=== PATIENT | female | born 1960 | race Two or more races ===

== ENCOUNTER 2025-02-16 00:49 | Inpatient (IN) | payer MEDICARE, MEDICAID ==
[~2025-02-16] VITALS: Ht 157.5 cm; Wt 99.5 kg
[2025-02-16] VITALS (12 sets, daily range): BP systolic 112–130; BP diastolic 53–78; PULSE 78–99; RESP 15–20; TEMP 97.5–98.3; O2SAT 92–100
[2025-02-16] MEDS: ALBUTEROL SULF 2.5 MG/0.5ML(0.5%) NEB SOLN NEB ONE ×2 (01:40→03:17)
[2025-02-16] MEDS: IPRATROPIUM BROM 0.5 MG/2.5ML INH SOL NEB ONE ×2 (01:40→03:17)
--- NOTE | 2025-02-16 01:55 | ED.PDOC ---
History of Present Illness HPI Comments 64 y/o obese F, with a history of COPD, DM, and HTN, is BIBA for c/o shortness of breath and left flank pain that began today. Patient was reported to have been found on 91% on RA on scene and was given breathing treatment en route. SpO2, temporarily, improved 96% prior to dropping, again, before ED arrival. She denies having any chest pain, nausea, vomiting, fever, chills, or further associated symptoms. Chief Complaint: Shortness of Breath Time Seen by MD: 01:00 Reviewed Notes: Nurses Notes, Border Patrol Officer Notes, Medications, Allergies Allergies: Coded Allergies: NO KNOWN ALLERGIES (Unverified , 02/16/25) Information Source: Patient, Emergency Med Personnel Mode of Arrival: EMS Severity: Moderate Timing: Hours Duration: Since onset Prehospital treatment: 12 Lead EKG, Breathing Tx, Floor Finisher Past Medical History PAST MEDICAL HISTORY: COPD, DM, HTN Surgical History: Denies all surgeries RAILROAD WATCHMAN History: Denies all RAILROAD WATCHMAN Hx Family History Family History: Unknown Social History Smoker: Non-Smoker Alcohol: Denies ETOH Use Drugs: Denies Drug Use Lives In: Home All Other Systems: Reviewed and Negative (Comprehensive systems review obtained and negative except for what is stated in the HPI.) Physical Exam General Appearance: No Apparent Distress, Obese HEENT: Normal ENT Inspection, Pharynx Normal, TMs Normal Neck: Full Range of Motion, Non-Tender, Normal, Normal Inspection Respiratory: Chest Non-Tender, Decreased Breath Sounds (diminished breath sounds on left-side ), Lungs Clear, No Accessory Muscle Use, No Respiratory Dis tress Cardiovascular: No Edema, No JVD, No Murmur, No Gallop, Normal Peripheral Pulses, Regular Rate/Rhythm Breast Exam: Deferred Gastrointestinal: No Organomegaly, Non Tender, No Pulsatile Mass, Normal Bowel Sounds, Soft Genitalia: Deferred Pelvic: Deferred Rectal: Deferred Extremities: No calf tenderness, Normal capillary refill, Normal inspection, Normal range of motion, Non-tender, No pedal edema Musculoskeletal : Apperance: Normal Neurologic: Alert, respiratory medicine physician II-XII nml as Tested, No Motor Deficits, Normal Affect, Normal Mood, No Sensory Deficits Cerebellar Function: Normal Reflexes: Normal Skin: Dry, Normal Color, Warm Lymphatic: No Adenopathy Was a procedure done? Was a procedure done?: No Differential Dx Considerations may include: URI, [place], PE, PNA, viral syndrome, nephrolithiasis, cystitis, musculoskeletal pain, among others X-Ray, Labs, Meds, VS Vital Signs Date Time Temp Pulse Resp B/P (MAP) Pulse Ox O2 Delivery O2 Flow Rate FiO2 02/16/25 01:42 22 100 Nasal Cannula* 2 28 02/16/25 01:10 98.3 117 22 92/53 (66) 100 98.3 02/16/25 00:53 115 Lab Test 02/16/25 01:50 Range/Units White Blood Count 10.2 4.4-10.8 10^3/uL Red Blood Count 4.94 4.0-5.20 10^6/uL Hemoglobin 13.8 12.2-16.2 g/dL Hematocrit 42.0 36.0-46.0 % Mean Corpuscular Volume 85.0 80.0-100.0 fL Mean Corpuscular Hemoglobin 27.8 L 28.0-32.0 pg Mean Corpuscular Hemoglobin Concent 32.8 32.0-36.0 g/dL Red Cell Distribution Width 16.0 H 11.8-14.3 % Platelet Count 195 140-450 10^3/uL Mean Platelet Volume 7.0 6.9-10.8 fL Neutrophils (%) (Auto) 69.2 37.0-80.0 % Lymphocytes (%) (Auto) 20.0 10.0-50.0 % Monocytes (%) (Auto) 9.3 0.0-12.0 % Eosinophils (%) (Auto) 1.2 0.0-7.0 % Basophils (%) (Auto) 0.3 0.0-2.0 % Neutrophils # (Auto) 7.0 1.6-8.6 10 ^3/uL Lymphocytes # (Auto) 2.0 0.4-5.4 10 ^3/uL Monocytes # (Auto) 0.9 0-1.3 10 ^3/uL Eosinophils # (Auto) 0.1 0-0.8 10 ^3/uL Basophils # (Auto) 0 0-0.2 10 ^3/uL Nucleated Red Blood Cells 0.0 % Sodium Level 136 136-145 mmol/L Potassium Level 4.1 3.5-5.1 mmol/L Chloride Level 103 98-107 mmol/L Carbon Dioxide Level 25 20-31 mmol/L Anion Gap 8 5-15 Blood Urea Nitrogen 14 9-23 mg/dL Creatinine 0.98 0.550-1.02 mg/dL Glomerular Filtration Rate Calc 64 >90 mL/min BUN/Creatinine Ratio 14.3 10.0-20.0 Serum Glucose 205 H 74-106 mg/dL Calcium Level 9.0 8.7-10.4 mg/dL Total Bilirubin Pending Aspartate Amino Transferase (AST) 17 13-40 U/L Alanine Aminotransferase (ALT) 21 7-40 U/L Alkaline Phosphatase 70 46-116 U/L B-Type Natriuretic Peptide 6.70 0-100 pg/mL Total Protein 7.1 5.7-8.2 g/dL Albumin 4.3 3.2-4.8 g/dL Current Medications Medications (Trade) Dose Ordered Sig/Terra Route Start Time Stop Time Status Last Admin Albuterol (Ventolin Medneb) 2.5 mg ONCE ONCE NEB 02/16/25 01:00 02/16/25 01:02 DC 02/16/25 01:40 Ipratropium [place] (Atrovent Medneb) 0.5 mg ONCE ONCE NEB 02/16/25 01:00 02/16/25 01:02 DC 02/16/25 01:40 X-Ray, Labs, Meds, VS Comment Chest x-ray shows concerns of pneumonia Review of CT abdomen and pelvis shows some consolidation in left lower lobe, pending radiology review There was no elevated white count Patient will be admitted for pneumonia, hypoxia, COPD exacerbation Patient will be started on azithromycin and Rocephin Given Decadron and DuoNeb treatments Imaging: X-rays and CT scans were reviewed and interpreted by this provider, Pending radiology review. Laboratory: Labs reviewed and interpreted by this provider. Patient has prior medical visits reviewed. Med reconciliation performed Vital signs reviewed Time of 1ST Reevaluation: 01:30 Reevaluation 1ST: Unchanged Patient Education/Counseling: Diagnosis, Treatment Family Education/Counseling: No Family Present Departure 1 Departure Time of Disposition: 02:41 Impression: Primary Impression: Pneumonia Qualified Codes: J18.9 - Pneumonia, unspecified organism Additional Impressions: Hypoxia COPD exacerbation Disposition: 09 ADMITTED INPATIENT Condition: Stable Critical Care Note Critical Care Time?: No Stability Stability form required: No Heart Score Heart Score: Heart Score Response (Comments) Value History N/A 0 EKG N/A 0 Age N/A 0 Risk Factors N/A 0 Troponin N/A 0 Total 0 I personally scribed for KENAN FIGUEROA ([email or web address]) on 02/16/25 at 01:55. Electronically submitted by Emeka Cheema ([email or web address]). KENAN FIGUEROA February 16, 2025 01:55
[2025-02-16 02:03] LABS: Basophils # (auto) 0 10 ^3/uL (0-0.2); Basophils % (auto) 0.3 % (0.0-2.0); Eosinophils # (auto) 0.1 10 ^3/uL (0-0.8); Eosinophils % (auto) 1.2 % (0.0-7.0); Hemoglobin 13.8 g/dL (12.2-16.2); Mean Corpuscular Hemoglobin 27.8 pg (28.0-32.0); Mean Corpuscular Hgb Conc. 32.8 g/dL (32.0-36.0); Monocytes # (auto) 0.9 10 ^3/uL (0-1.3); Monocytes % (auto) 9.3 % (0.0-12.0); Neutrophils % (auto) 69.2 % (37.0-80.0); Platelet Count (auto) 195 10^3/uL (140-450); Red Blood Cells 4.94 10^6/uL (4.0-5.20); White Blood Cell 10.2 10^3/uL (4.4-10.8)
[2025-02-16 02:20] LABS: Alanine Aminotransferase 21 U/L (7-40); Albumin 4.3 g/dL (3.2-4.8); Alkaline Phosphatase 70 U/L (46-116); Anion Gap 8 (5-15); Aspartate Aminotransferase 17 U/L (13-40); BUN/Creatinine Ratio 14.3 (10.0-20.0); Blood Urea Nitrogen 14 mg/dL (9-23); Carbon Dioxide 25 mmol/L (20-31); Chloride 103 mmol/L (98-107); Potassium 4.1 mmol/L (3.5-5.1); Sodium 136 mmol/L (136-145); Total Protein 7.1 g/dL (5.7-8.2)
[2025-02-16 02:24] LABS: Glucose 205 mg/dL (74-106)
--- NOTE | 2025-02-16 02:33 | ECG ---
[facility] Test Date: 2025-02-16 Test Time: 00:53:14 Pat Name: CLIFF TEMPLETON Department: ED Room: 0246T Gender: F Psychiatric Lpn: PAOLO : 1960 Requested By: KENAN FIGUEROA Order Number: [id number] Reading MD: Luciano Villegas Measurements Intervals Gate Rate: 115 P: 49 AK: 137 QRS: 89 QRSD: 92 T: 7 QT: 325 QTc: 450 Interpretive Statements Sinus tachycardia Borderline right axis deviation Abnormal R-wave progression, late transition Electronically Signed On 02-22-2025 11:12:31 PDT by Luciano Villegas Please click the below link to view image of tracing.
[2025-02-16] MEDS: DexAMETHasone SOD PHOS 10MG/1ML VIAL INJ IV ONE (02:46)
[2025-02-16] MEDS: cefTRIAXone 1GM/50ML D5W 50 ML IV ONE (02:47)
--- NOTE | 2025-02-16 02:51 | DVH ---
CHEST RADIOGRAPH Indication: sob Technique: Single frontal view of the chest was obtained Comparison: None IMPRESSION: Heart appears normal in size. The lungs appear clear without focal airspace opacity, effusion, or pn eumothorax. Obscuration of the left hemidiaphragm. Mild pulmonary vascular congestion.
--- NOTE | 2025-02-16 03:06 | DVH ---
Exam: CT CT AB PEL WO CON-NO ORAL OR IV History: flank pain Comparison Study: None TECHNIQUE: Multidetector CT of the abdomen and pelvis was performed from lung bases to pubic symphysi s. Imaging was performed without IV contrast. Axial, coronal and sagittal multiplanar reformats were obtained from the axial data set by the technologist. Radiation optimization: All CT scans at this facility use at least one of these dose optimization kian hniques: automated exposure control mA and/or kV adjustment per patient size (includes targeted exam s where dose is matched to clinical indication) or iterative reconstruction. Radiation Dose Information: CT Dose: CTDI volume is 26.33 mGy. Dose-length product is 1513.78 mGy*cm FINDINGS: Evaluation of solid organs is limited due to lack of intravenous contrast use. Imaged portions of the lung bases demonstrate patchy opacities in the left lung base less so at the r ight lung base. There is a small hiatal hernia. There is diffuse hepatic steatosis. Gallbladder is not visualized. Spleen, pancreas and adrenal gland s appear unremarkable. The kidneys appear symmetric without hydronephrosis. No evidence of renal or ureteral calculus. No evidence of bowel obstruction or focal bowel wall thickening. No free fluid, free air, or adenopat hy. No suspicious osseous lesion. There are multiple bilateral breast masses measuring up to 5.3 cm in the right breast IMPRESSION: 1. Diffuse hepatic steatosis 2. Patchy opacities most pronounced in the left lung base may represent infectious process. 3. Bilateral breast masses. Correlation with the recent mammography is recommended. If patient is no t up-to-date on screening indicating benign etiology of these masses, diagnostic mammogram and ultras ound recommended.
[2025-02-16] MEDS ORDERED: DEXTROSE (50%) 50ML SYRG IV PRN (03:15)
[2025-02-16] MEDS: DOXYCYCLINE 100MG/100ML 100 ML IV ONE (03:15)
[2025-02-16] MEDS ORDERED: SODIUM CHLORIDE 0.9% 1,000 ML IV ONE (03:15)
[2025-02-16] MEDS ORDERED: SODIUM CHLORIDE 0.9% 1,000 ML IV SCH (03:15)
[2025-02-16] MEDS ORDERED: NITROGLYCERIN 0.4 MG SL TAB SL PRN (03:15)
[2025-02-16] MEDS: cefTRIAXone 2GM/50ML D5W 50 ML IV ONE (03:22)
--- NOTE | 2025-02-16 03:28 | DVHHP2 ---
History of Present Illness History of Present Illness Patient is 64 years old female with a past medical history of hypertension, diabetes mellitus, COPD previously used to be on home oxygen came with a complaint of left flank pain and shortness of breaths. As per patient she started having left flank pain yesterday morning sudden onset, 10/10, int ermittent, especially with the breathing. Patient also endorsed short of breath associated with the flank pain which increased with breathing. Patient reported she she has been having cough with greenish sputum for last 1 week. Patient was reported to have been found on 91% on RA on scene and was given breathing treatment en route. SpO2, temporarily, improved 96% prior to dropping, again, before ED arriva. Patient denied any fever or chest pain, acute dysuria, acute joint pain or swelling. D-dimer 1.4. CXR- Obscuration of the left hemidiaphragm. Mild pulmonary vascular congestion. CT abdomen and pelvis revealed-. Diffuse hepatic steatosis. 2. Patchy opacities most pronounced in the left lung base may represent infectious process.3. Bilateral breast masses. Correlation with the recent mammography is recommended. If patient is not up-to-date on screening indicating benign etiology of these masses, diagnostic mammogram and ultrasound recommended. Reported she does not see any doctor. Past Medical History hypertension, diabetes mellitus, COPD previously used to be on home oxygen Past Surgical History No Surgical history Family History Dad had diabetes Past Social History Lives with daughter, smokes cigarettes, place alcoholism or drug abuse Review of Systems Review of Systems Allergy- NKDA Patient was seen today at the bedside. Cardiovascular- deny acute chest pain or palpitation Respiratory denies wheezing Gastrointestinal- denies any rectal bleeding, nausea or vomiting Musculoskeletal-denies acute joint swelling or tenderness or redness Neurological- denies acute dysarthria, dysphagia, change in vision Psychiatry- denies depression or SI or HI Skin-no purpura Allergies: Coded Allergies: NO KNOWN ALLERGIES (Unverified , 02/16/25) Exam Vital Signs Vital Signs Date Time Temp Pulse Resp B/P (MAP) Pulse Ox O2 Delivery O2 Flow Rate FiO2 02/16/25 01:42 22 100 Nasal Cannula* 2 28 02/16/25 01:30 97.8 95 113/68 (83) 97.8 Exam General examination- awake, alert, conversant HEENT- PEERLA, no acute nasal discharge Cardiovascular- S1-S2 audible, rate and rhythm regular, no murmur Respiratory- crackles in the left lower lung base Gastrointestinal-nontender, bowel sound+. Nondistended Musculoskeletal-no acute joint swelling or tenderness or redness Genitourinary-left flank tenderness++ Lower extremity- no leg edema Neurological- cranial nerves intact, no acute dysarthria or dysphagia Psychiatry- denies depression or SI or HI Skin- no acute rash or purpura Labs/Xrays Labs Test 02/16/25 01:50 Range/Units White Blood Count 10.2 4.4-10.8 10^3/uL Red Blood Count 4.94 4.0-5.20 10^6/uL Hemoglobin 13.8 12.2-16.2 g/dL Hematocrit 42.0 36.0-46.0 % Mean Corpuscular Volume 85.0 80.0-100.0 fL Mean Corpuscular Hemoglobin 27.8 L 28.0-32.0 pg Mean Corpuscular Hemoglobin Concent 32.8 32.0-36.0 g/dL Red Cell Distribution Width 16.0 H 11.8-14.3 % Platelet Count 195 140-450 10^3/uL Mean Platelet Volume 7.0 6.9-10.8 fL Neutrophils (%) (Auto) 69.2 37.0-80.0 % Lymphocytes (%) (Auto) 20.0 10.0-50.0 % Monocytes (%) (Auto) 9.3 0.0-12.0 % Eosinophils (%) (Auto) 1.2 0.0-7.0 % Basophils (%) (Auto) 0.3 0.0-2.0 % Neutrophils # (Auto) 7.0 1.6-8.6 10 ^3/uL Lymphocytes # (Auto) 2.0 0.4-5.4 10 ^3/uL Monocytes # (Auto) 0.9 0-1.3 10 ^3/uL Eosinophils # (Auto) 0.1 0-0.8 10 ^3/uL Basophils # (Auto) 0 0-0.2 10 ^3/uL Nucleated Red Blood Cells 0.0 % Sodium Level 136 136-145 mmol/L Potassium Level 4.1 3.5-5.1 mmol/L Chloride Level 103 98-107 mmol/L Carbon Dioxide Level 25 20-31 mmol/L Anion Gap 8 5-15 Blood Urea Nitrogen 14 9-23 mg/dL Creatinine 0.98 0.550-1.02 mg/dL Glomerular Filtration Rate Calc 64 >90 mL/min BUN/Creatinine Ratio 14.3 10.0-20.0 Serum Glucose 205 H 74-106 mg/dL Calcium Level 9.0 8.7-10.4 mg/dL Aspartate Amino Transferase (AST) 17 13-40 U/L Alanine Aminotransferase (ALT) 21 7-40 U/L Alkaline Phosphatase 70 46-116 U/L B-Type Natriuretic Peptide 6.70 0-100 pg/mL Total Protein 7.1 5.7-8.2 g/dL Albumin 4.3 3.2-4.8 g/dL Assessment/Plan Assessment/Plan Assessment and plan Acute pneumonia Gram-positive versus Gram-negative Acute hypoxic respiratory failure likely due to pneumonia Gram-positive versus Gram-negative Suspected Sepsis likely due to pneumonia Exacerbation of COPD Acute flank pain, rule out acute pyelonephritis Hypertension Diabetes mellitus type 2 Obesity COPD Hepatic steatosis Bilateral breast mass-ordered OBG and Gyne consult D-dimer 1.4 CXR- Obscuration of the left hemidiaphragm. Mild pulmonary vascular congestion. CT abdomen and pelvis revealed-. Diffuse hepatic steatosis. 2. Patchy opacities most pronounced in the left lung base may represent infectious process.3. Bilateral breast masses. Correlation with the recent mammography is recomme nded. If patient is not up-to-date on screening indicating benign etiology of these masses, diagnostic mammogram and ultrasound recommended. Plan Ordered CT angio of chest to rule out pulmonary embolism Ordered Zosyn and doxycycline Ordered IV normal saline Ordered nebulization Ordered D-dimer Ordered pain medications Lovenox DVT prophylaxis Ordered echo 2D Ordered blood culture, sputum culture, urine culture, MRSA Order ultrasound of the renal system to rule out pyelonephritis Ordered COVID-19, influenza, UDS, blood alcohol level ordered OBG and Gyne consult Goals of care, Code status ; discussed with >15 minutes PUD prophylaxis: Pantoprazole DVT prophylaxis: Lovenox Plan discussed with Dr. Craig , nursing staff, Total time spent on patient evaluation, chart review, assessment and plan, discussion discussion >35 minutes Plan discussed with: Patient, Other (RN) My Orders Orders - BENITA CASSIDY RESIDENT Procedure Category Date Status Time Admit ADMIT 02/16/25 Transmitted 03:10 Code Status CODE 02/16/25 Transmitted 03:10 Hydrocodone-Acet PHA 02/16/25 In Process 5/325mg Tab ([place] 03:15 Enoxaparin Sodium PHA 02/16/25 In Process (Lovenox) 10:00 Complete Blood Count LAB 02/17/25 Verified 04:00 Comprehensive LAB 02/17/25 Verified Metabolic Panel 04:00 Cardiac DIET 02/16/25 Transmitted Diet-2gna,Lofat,Lochol Breakfast Echo 2d Mode Cardiac US 02/16/25 Logged DOP 03:10 Acetaminophen Tablet PHA 02/16/25 In Process (Tylenol Tablet) 03:15 Nitroglycerin PHA 02/16/25 In Process Sublingual (Ntrostat 03:15 Oxygen By Nasal RT 02/16/25 Transmitted Cannula 03:10 Notify Of Changes SOL 02/16/25 In Process From Base 03:10 Boilermaker Fitter For SOL 02/16/25 In Process 24 Hours 03:10 Ceftriaxone 2gm/50ml PHA 02/16/25 In Process D5w (Rocephin 2gm/5 03:15 Doxycycline PHA 02/16/25 In Process 100mg/100ml 03:15 Doxycycline PHA 02/16/25 In Process 100mg/100ml 15:00 Glucose Blood PHA 02/16/25 In Process (Accu-Chek Comfort 07:00 Insulin R (Human) PHA 02/16/25 In Process (Insulin R) 07:00 Dextrose 50% Syringe PHA 02/16/25 In Process 03:15 Blood Culture [facility]O 02/16/25 Logged 03:15 Urine Bacterial [place] 02/16/25 Logged Culture 03:15 Respiratory Culture [place] 02/16/25 Logged W/ Gs 03:15 Mrsa Screen [place]O 02/16/25 Logged 03:15 Covid19 Antigen Yenni LAB 02/16/25 Logged Rapid Influenza A&B LAB 02/16/25 Logged 03:15 D-Dimer LAB 02/16/25 Logged 03:15 Ceftriaxone 2gm/50ml PHA 02/17/25 In Process D5w (Rocephin 2gm/5 10:00 Pantoprazole PHA 02/17/25 In Process (Protonix) 10:00 Thyroid Stimulating LAB 02/16/25 Logged Hormone 03:16 Magnesium LAB 02/16/25 Logged 03:16 Troponin-I Hs LAB 02/16/25 Logged 03:18 Troponin-I Hs LAB 02/16/25 Logged 04:18 Troponin-I Hs LAB 02/16/25 Logged 06:18 Date of Service: February 16, 2025 Billing Provider: ODNNIE CRAIG MD Common Visit Codes: 86943-CGPCKHA INP/OBS CARE (HIGH) Secondary Visit Codes: 72448-[id number] CARE PLAN 30 MINUTES BENITA CASSIDY RESIDENT February 16, 2025 03:28
[2025-02-16 03:35] LABS: Bilirubin, Total 0.4 mg/dL (0.2-1.0)
[2025-02-16] MEDS: SODIUM CHLORIDE 0.9% 1,000 ML IV ONE (03:44)
[2025-02-16] MEDS: PANTOPRAZOLE 40 MG/10 ML VIAL INJ IV ONE (03:44)
[2025-02-16] MEDS: AZITHROMYCIN 500MG/ 250ML 250 ML IV ONE (03:44)
[2025-02-16] MEDS: PIPERACILLIN-TAZOB 3.375GM 100 ML IV ONE (03:45)
[2025-02-16 04:04] LABS: Urine Bacteria None Seen /hpf (None Seen)
[2025-02-16 04:40] LABS: Urine Blood Negative /uL (Negative); Urine Clarity Clear (Clear); Urine Color Yellow (Yellow); Urine Mucus FEW (None Seen); Urine Protein, UAD TRACE (Negative); Urine Specific Gravity 1.023 (1.001-1.035); Urine Squamous Epithelial Cell FEW /hpf (<5); Urine Urobilinogen Normal (Negative); Urine WBC 4 /HPF (0-5); Urine pH 5.5 (5.0-9.0)
[2025-02-16 04:43] LABS: Benzodiazephine Screen, Urine Neg (NEGATIVE); Phencyclidine Screen, Urine Neg (NEGATIVE)
[2025-02-16 04:45] LABS: Amphetamine Screen, Urine Neg (NEGATIVE); Barbiturate Scree,Urine Neg (NEGATIVE); Cannabinoid Screen, Urine Neg (NEGATIVE); Cocaine Screen, Urine Neg (NEGATIVE); Opiate Scree,Urine Neg (NEGATIVE)
[2025-02-16] MEDS ORDERED: QUET300T24 PO (05:31)
[2025-02-16] MEDS: HYDROcodone-ACET 5/325MG TAB PO PRN (05:52)
[2025-02-16] MEDS ORDERED: PIPERACILLIN-TAZOB 3.375GM 100 ML IV SCH (06:00)
[2025-02-16] MEDS: PIPERACILLIN-TAZOB 3.375GM 100 ML IV SCH (06:00)
[2025-02-16] MEDS ORDERED: MORPHINE SULFATE INJ 2 MG/ml SYRG IV PRN (06:45)
[2025-02-16] MEDS ORDERED: METH-1214 PO (06:59)
[2025-02-16] MEDS: InsuLIN REG 1unit/0.01ml Soln (100units/ml) SC SCH (07:04)
[2025-02-16] MEDS: ACCU-CHEK COMFORT CURVE STRIP VI SCH (07:05)
--- NOTE | 2025-02-16 07:49 | DVH ---
INDICATION: Left flank pain TECHNIQUE: Multiple real-time sonographic images of the kidneys and bladder were obtained. COMPARISON: None FINDINGS: The right kidney measures 11.1 cm in length, which is normal in size. There is normal echog enicity of the right kidney. No hydronephrosis. The left kidney measures 10.6 cm in length, which is normal in size. There is normal echogenicity of the left kidney. Interpolar cyst measuring 1.9 cm. No hydronephrosis. No large intraluminal masses are seen in the bladder. Prior to voiding the bladder volume measures vo lume 244 cc. IMPRESSION: 1. No hydronephrosis. Left renal cyst.
[2025-02-16 08:14] LABS: COVID19 ANTIGEN SOFIA FIA NEGATIVE (NEGATIVE); Rapid Influenza A Negative (Negative); Rapid Influenza B Negative (Negative)
[2025-02-16] MEDS: ENOXAPARIN SOD 40 MG/0.4 ML SYRINGE SC SCH (08:50)
[2025-02-16] MEDS ORDERED: METHADONE HCL 10 MG TAB PO SCH (10:00)
--- NOTE | 2025-02-16 11:47 | DVH ---
US OF THE BILATERAL BREASTS INDICATION: breast mass TECHNIQUE: All 4 quadrants, subareolar region and axillary region of the BILATERAL breast were evalu ated with ultrasound COMPARISON: Prior exam dated: CT 02/16/2025 FINDINGS: Oval hypoechoic mass in the right breast at 12 o'clock measuring 7.1 x 2.3 x 5.8 cm in the right reed st at 12 o'clock. There are multiple abnormal lymph nodes in the right axilla with thickened cortex m easuring 6 mm. There is a oval hypoechoic mass in the left retroareolar region measuring 1.9 cm. There are benign-ap pearing lymph nodes in the left axilla. IMPRESSION: 1. Oval hypoechoic mass in the right breast at 12 o'clock is suspicious. 2. Multiple abnormal lymph nodes in the right axilla are suspicious. 3. Oval hypoechoic mass in the left retroareolar breast is suspicious. Recommend ultrasound-guided biopsy of right breast mass at 12 o'clock, right axillary lymph node, lef t retroareolar breast mass. Recommend further evaluation with diagnostic bilateral mammogram. ACR Bi Rads Category:Category 0-"INCOMPLETE" (Needs Additional Imaging Evaluation))
--- NOTE | 2025-02-16 12:52 | DVHINCON2 ---
Date of service: February 16, 2025 Referring Physician hospitalist Reason for Consultation breast masses History of Present Illness pt is FEMALE ADMITTED FOR PYELONEPHRITIS.SHE DENIES HAVING ANY POSTMENOPAUSAL BLEEING OR DISCHARGE.HER LAST PAP AND MAMMO WERE OVER 5 YRS AGO.PT HAS ABN MAMMO C/W MULTIPLE MASSES SUSPICIOUS FOR MALIGNANCY ALONG WITH LYMPH NODES. Past Medical History DM,COPD,HTN Past Surgical History CS X2 Family History NA Social History 3NSVD,2 CS Patient Family History: Diabetes mellitus G8 FATHER Allergies: Coded Allergies: NO KNOWN ALLERGIES (Unverified , 02/16/25) Home Meds Reported Medications Methadone Hcl (METHADONE HCL TABLET) 10 Mg Tb, 140 MG PO DAILY, TAB 02/16/25 Quetiapine Fumerate (QUETIAPINE FUMARATE) 300 Mg Tab, 1-2 TAB PO 02/16/25 Current Medications Current Medications Medications (Trade) Dose Ordered Sig/Terra Route PRN Reason Start Time Stop Time Status Last Admin Sodium Chloride 1,000 ml @ 120 mls/hr Q8H20M IV 02/16/25 03:15 02/16/25 03:27 DC Acetaminophen/ Hydrocodone Bitart (Oriental 5/325MG Tab) 1 tab Q4HP PRN PO MODERATE PAIN (4-6 PAIN SCALE) 02/16/25 03:15 02/16/25 05:52 Enoxaparin Sodium (Lovenox) 40 mg DAILY SC 02/16/25 10:00 Acetaminophen (Tylenol Tablet) 650 mg Q6HP PRN PO PAIN SCALE 1-3 OR TEMP>100.4 02/16/25 03:15 Nitroglycerin (Ntrostat Sublingual) 0.4 mg Q5MINP PRN SL FOR CHEST PAIN 02/16/25 03:15 Ceftriaxone Sodium/Dextrose 50 ml @ 50 mls/hr DAILY IV 02/17/25 10:00 02/16/25 03:38 DC Doxycycline Hyclate 100 ml @ 50 mls/hr Q12H IV 02/16/25 15:00 Pantoprazole Sodium (Protonix) 40 mg DAILY IV 02/17/25 10:00 Diagnostic Test (Pha) (Accu-Chek Comfort Curve T) 1 strip ACHS 02/16/25 07:00 02/16/25 07:05 Insulin Human Regular (InsuLIN R) ACHS SC 02/16/25 07:00 02/16/25 07:04 Dextrose 50 ml UD PRN IV Blood Sugar LESS THAN 60 02/16/25 03:15 Piperacillin Sod/ Tazobactam Sod 100 ml @ 25 mls/hr Q6HR IV 02/16/25 06:00 UNV Piperacillin Sod/ Tazobactam Sod 100 ml @ 25 mls/hr Q8HR IV 02/16/25 06:00 Levalbuterol HCl (Xopenex Medneb) 1.25 mg Q4HR NEB 02/16/25 06:00 Ipratropium [place] (Atrovent Medneb) 0.5 mg Q4HR NEB 02/16/25 06:00 Morphine Sulfate 1 mg Q6HP PRN IV SEVERE PAIN (7-10 PAIN SCALE) 02/16/25 06:45 Methadone HCl (Methadone HCl Tablet) 140 mg DAILY PO 02/16/25 10:00 02/16/25 06:57 DC Sodium Chloride 1,000 ml @ 75 mls/hr [id number] IV 02/16/25 10:15 Review of Systems Constitutional: no fever, chill, weight loss HEENT: no eye pain, no hearing loss, no oral lesion, no scleral icterus Heart: no chest pain, no chest pressure Lung: no cough, no dyspnea with exertion Abdomen: NO CONSTIPATION : no pain with urination, normal appearing urine Musculoskeletal: no joint pain, no muscle pain Neurological: no seizure, no loss of sensation, no weakness in extremities Pysch: no depression, no anxiety Derm: no rash, no jaundice Vital Signs Vital Signs Date Time Temp Pulse Resp B/P (MAP) Pulse Ox O2 Delivery O2 Flow Rate FiO2 02/16/25 09:00 98.1 87 15 116/59 (78) 92 98.1 02/16/25 08:00 Nasal Cannula* 3 32 Physical Exam SKIN: [NL] HEENT: [NL] NECK: [NL] CARDIAC: [RRR] PULMONARY: [CTA ] ABDOMEN: [SOFT,NT ] MUSCULOSKELETAL: [POS CVA TENDERNESS] BREASTS -SYMMETRICAL ,10 OCLOCK PALAPABLE 4 CM MASS R BREAST ,NO NIPPLE DISCHARGE PELVIC- VAG ATROPHIC,CX SMALL ATROPHIC,UTERUS 7 WKS SIZE,ADENXA NT EXT NO CCE Labs/Diagnostic Data Labs Test 02/16/25 11:30 02/16/25 07:35 02/16/25 06:34 02/16/25 04:38 Range/Units Troponin I High Sensitivity < 3 L </=34 ng/L Influenza Type A Antigen Negative Negative Influenza Type B Antigen Negative Negative SARS-CoV-2 Antigen (Rapid) Negative NEGATIVE POC Glucose 263 H 70-106 mg/dl D-Dimer, Quantitative 1.40 H 0.0-0.49 mg/L FEU Magnesium Level 2.0 1.6-2.6 mg/dL Thyroid Stimulating Hormone (TSH) 1.85 0.55-4.78 uIU/mL Plasma/Serum Blood Alcohol < 3.0 <10 mg/dL Test 02/16/25 03:30 02/16/25 01:50 Range/Units Urine Color Yellow Yellow Urine Clarity Clear Clear Urine pH 5.5 5.0-9.0 Urine Specific [place] 1.023 1.001-1.035 Urine Protein Trace H Negative Urine Ketones Negative Negative Urine Blood Negative Negative /uL Urine Nitrite Negative Negative Urine Bilirubin Negative Negative Urine Urobilinogen Normal Negative mg/dL Urine Leukocyte Esterase Trace Negative /uL Urine RBC None seen 0 - 4 /hpf Urine Microscopic WBC 4 0-5 /HPF Urine Squamous Epithelial Cells Few <5 /hpf Urine Bacteria None seen None Seen /hpf Urine Mucus Few None Seen Urine Glucose Trace Normal mg/dL Urine Opiates Screen Neg NEGATIVE Urine Fentanyl Screen Neg NEGATIVE Urine Barbiturates Screen Neg NEGATIVE Urine Phencyclidine Screen Neg NEGATIVE Urine Amphetamines Screen Neg NEGATIVE Urine Benzodiazepines Screen Neg NEGATIVE Urine Cocaine Screen Neg NEGATIVE Urine Cannabinoids Screen Neg NEGATIVE White Blood Count 10.2 4.4-10.8 10^3/uL Red Blood Count 4.94 4.0-5.20 10^6/uL Hemoglobin 13.8 12.2-16.2 g/dL Hematocrit 42.0 36.0-46.0 % Mean Corpuscular Volume 85.0 80.0-100.0 fL Mean Corpuscular Hemoglobin 27.8 L 28.0-32.0 pg Mean Corpuscular Hemoglobin Concent 32.8 32.0-36.0 g/dL Red Cell Distribution Width 16.0 H 11.8-14.3 % Platelet Count 195 140-450 10^3/uL Mean Platelet Volume 7.0 6.9-10.8 fL Neutrophils (%) (Auto) 69.2 37.0-80.0 % Lymphocytes (%) (Auto) 20.0 10.0-50.0 % Monocytes (%) (Auto) 9.3 0.0-12.0 % Eosinophils (%) (Auto) 1.2 0.0-7.0 % Basophils (%) (Auto) 0.3 0.0-2.0 % Neutrophils # (Auto) 7.0 1.6-8.6 10 ^3/uL Lymphocytes # (Auto) 2.0 0.4-5.4 10 ^3/uL Monocytes # (Auto) 0.9 0-1.3 10 ^3/uL Eosinophils # (Auto) 0.1 0-0.8 10 ^3/uL Basophils # (Auto) 0 0-0.2 10 ^3/uL Nucleated Red Blood Cells 0.0 % Sodium Level 136 136-145 mmol/L Potassium Level 4.1 3.5-5.1 mmol/L Chloride Level 103 98-107 mmol/L Carbon Dioxide Level 25 20-31 mmol/L Anion Gap 8 5-15 Blood Urea Nitrogen 14 9-23 mg/dL Creatinine 0.98 0.550-1.02 mg/dL Glomerular Filtration Rate Calc 64 >90 mL/min BUN/Creatinine Ratio 14.3 10.0-20.0 Serum Glucose 205 H 74-106 mg/dL Hemoglobin A1c 6.8 H <5.7 % A1C Calcium Level 9.0 8.7-10.4 mg/dL Total Bilirubin 0.4 0.2-1.0 mg/dL Aspartate Amino Transferase (AST) 17 13-40 U/L Alanine Aminotransferase (ALT) 21 7-40 U/L Alkaline Phosphatase 70 46-116 U/L B-Type Natriuretic Peptide 6.70 0-100 pg/mL Total Protein 7.1 5.7-8.2 g/dL Albumin 4.3 3.2-4.8 g/dL Primary Diagnosis ACUTE PYELONEPHRITIS 2' Diagnosis/Comorbidities RIGHT BREAST MASS -ABN MAMMO SUSPICIOUS FOR MALIGNANCY WITH LN Plan RECOMMEND GEN SURGICAL CONSULTATION PT TO FU OUT PT FOR PAPSMEAR WILL SIGN OFF THANK YOU Plan discussed with: Patient Visit Coding OBGYN Date of Service: February 16, 2025 Billing Provider: JOVANNI FAYE DO OFFICE MANAGER Common Visit Codes: [id number] INP/OBS CARE(HIGH) OFFICE MANAGER Consultation Codes: [id number] CONSULT <80MIN JOVANNI FAYE DO February 16, 2025 12:52
--- NOTE | 2025-02-16 12:55 | DVH ---
CT CT ANGIO CHEST CONTRAST INDICATION: RULE OUT PULMONARY EMBOLISM EXAM DATE: 02/16/2025 12:16 PM COMPARISON: None RADIATION DOSE: CTDIvol: 28.72 mGy, DLP: 926.86 mGy*cm PROCEDURE: Helical CT angiographic images were obtained of the chest with intravenous contrast. Sagi ttal and coronal reconstructions as well as MIPS are provided. Maximum intensity projections performe d (MIPs) were performed for CTA. ADDITIONAL IMAGES / REFORMATS: None All CT scans at this medical facility are performed using dose modulation techniques as appropriate t o a performed exam including the following: Automated exposure control was utilized; adjustment of th e MA and/or KV according to patient size; and use of iterative reconstruction technique. FINDINGS: Bones: Scattered degenerative changes are noted in the visualized osseous structures. Visualized Abdomen: Hepatic steatosis. Chest Wall: Normal. Soft tissues: Normal. Mediastinum: Normal. Heart: Normal. Vessels: There is a small pulmonary embolism in the left lower segmental pulmonary artery. I just cam e 246 Lymph Nodes: Normal. Pleura: Normal. Airways: Normal. Lung: There is bibasilar atelactasis with left lower lobe ground glass opacities. Other: None IMPRESSION: There is a small pulmonary embolism in the left lower segmental pulmonary artery. Similar large right breast mass. No right heart strain seen. Hepatic steatosis. Critical Result: Pulmonary Emboli Findings discussed with lawson at 02/16/2025 12:50 PM and acknowledged receipt and understa nding of the findings.
--- NOTE | 2025-02-16 13:11 | DVHPNRES ---
Progress Note Date Seen: February 16, 2025 Resident Creating Document: ALEE PORTILLO RESIDENT Medical Necessity Reason Pt with a Central, PICC or Fol: No Subjective Review of Systems patient seen and examined at bed side on o2 via nc 4 L complaining of left lower chest with deep breathing greenish sputum fever no chills regular bowel and bladder Objective vital signs Vital Sign Date Time Temp Pulse Resp B/P (MAP) Pulse Ox O2 Delivery O2 Flow Rate FiO2 02/16/25 09:00 98.1 87 15 116/59 (78) 92 98.1 02/16/25 08:00 Nasal Cannula* 3 32 Total Intake and Output 02/15/25 02/15/25 02/16/25 15:00 23:00 07:00 Intake Total 1175 ml Balance 1175 ml medications Current Medications Medications Dose Ordered Sig/Terra Route Start Time Stop Time Status Last Admin Dose Admin Acetaminophen/ Hydrocodone Bitart 1 tab Q4HP PRN PO 02/16/25 03:15 02/16/25 05:52 1 TAB Enoxaparin Sodium 40 mg DAILY SC 02/16/25 10:00 Acetaminophen 650 mg Q6HP PRN PO 02/16/25 03:15 Nitroglycerin 0.4 mg Q5MINP PRN SL 02/16/25 03:15 Doxycycline Hyclate 100 ml @ 50 mls/hr Q12H IV 02/16/25 15:00 Pantoprazole Sodium 40 mg DAILY IV 02/17/25 10:00 Diagnostic Test (Pha) 1 strip ACHS 02/16/25 07:00 02/16/25 07:05 1 STRIP Insulin Human Regular ACHS SC 02/16/25 07:00 02/16/25 07:04 6 UNITS Dextrose 50 ml UD PRN IV 02/16/25 03:15 Piperacillin Sod/ Tazobactam Sod 100 ml @ 25 mls/hr Q6HR IV 02/16/25 06:00 UNV Piperacillin Sod/ Tazobactam Sod 100 ml @ 25 mls/hr Q8HR IV 02/16/25 06:00 Levalbuterol HCl 1.25 mg Q4HR NEB 02/16/25 06:00 Ipratropium [place] 0.5 mg Q4HR NEB 02/16/25 06:00 Morphine Sulfate 1 mg Q6HP PRN IV 02/16/25 06:45 Sodium Chloride 1,000 ml @ 75 mls/hr [id number] IV 02/16/25 10:15 Examination General Appearance: Cooperative. Well developed. Well nourished. NAD Head Exam: Normal inspection Neck Exam: Normal inspection. Non-tender. Normal alignment Pulmonary/Respiratory: Chest non-tender. Mild crackles over left lower lung base. No wheezing. Cardiovascular/Chest: Regular rate and rhythm. No murmurs. No JVD. Peripheral Pulses: 2+ Radial (R). 2+ Radial (L). 2+ Pedal (R). 2+ Pedal (L) Abdominal Exam: Normal bowel sounds. Soft. Nontender. No hepatospenomegaly. No masses Ankle Exam: Negative ankle edema Lower extremities: Negative lower extremity edema Neuro/Mental Status: A&O x4. Coherent Thoughts/Psych: Normal thought pattern. Appropriate mood and affect. Good judgement and insight Appearance: In no acute distress Skin Exam: Normal inspection. Normal color. Warm. Dry laboratory and microbiology Laboratory Tests 02/16/25 01:50 Test 02/16/25 01:50 Range/Units Serum Glucose 205 H 74-106 mg/dL Problem List/Assessment/Plan Problem List/Assessment/Plan Acute pneumonia Gram-positive versus negative Sepsis due to above Acute hypoxic respiratory failure due to above Bilateral breast mass concerning for malignancy Chronic obstructive pulmonary disease exacerbation Pulmonary embolism, small PE in left lower segmental pulmonary artery. Diabetes mellitus type 2 HGB A1c 6.8 Ruled out acute pyelonephritis3 History of hypertension Hepatic steatosis Plan/recommendation -CT angio chest showed small pain left lower segmental pulmonary artery, initiated Lovenox therapeutic subcu 1 mg/kg twice daily. -CT chest also showed left lower lobe pneumonia, continue with antibiotic Zosyn and doxycycline. Pending sputum/blood culture. -bilateral breast mass concerning for malignancy, radiology and surgery consultation has been done. -new onset diabetes mellitus type 2, continue with insulin sliding scale. -breathing treatment and oxygen via nasal cannula. -IV fluid normal saline 75 mL/hour -PUD prophylaxis with Protonix -DVT prophylaxis with enoxaparin Goals of care discussed greater than 24 minutes. Full code status. Plan discussed with Dr. Mattson Plan discussed with: Patient, Other (RN) My Orders My Orders Orders - ALEE PORTILLO RESIDENT Procedure Category Date Status Time L Breast Ultrasound US 02/16/25 Resulted 10:06 R Breast Ultrasound US 02/16/25 Resulted 10:06 Sodium Chloride 0.9% PHA 02/16/25 In Process 10:15 * Radiologist Consult CONS 02/16/25 Transmitted 12:56 * Surgical Consult CONS 02/16/25 Transmitted Date of Service: February 16, 2025 Billing Provider: CHRISTIAN MATTSON MD Common Visit Codes: [id number] INP/OBS CARE(HIGH) ALEE PORTILLO RESIDENT February 16, 2025 13:11 CHRISTIAN MATTSON MD February 16, 2025 15:18
--- NOTE | 2025-02-16 14:46 | DVH ---
US US GUIDANCE FOR NEEDLE PLACEME, HISTORY: BILATERAL BREAST BX PROCEDURE: Informed consent was obtained. The patient was positioned supine on the table, and limited Ultrasound was performed of the right and left breast. The skin overlying the biopsy site was prepp ed with chlorhexidine which was allowed to dry. Time out was performed. The entry site was anesthetiz ed with 1% lidocaine. A 18 gauge Biopince needle was advanced into the mass. Multiple core biopsy daniel ples were obtained using the 18 gauge biopsy needle. The samples were sent to formalin to pathology f or analysis. A marker clip was deployed in the mass. Imaging through the biopsy site was performed. N o immediate complication was identified. FINDINGS: Right breast mass at 12 o clock was biopsied. Left breast mass under the nipple was biopsie d. Intra-procedural images show the biopsy needle at the lesion. No significant post biopsy hemorrhag e is identified. IMPRESSION: Right breast mass at 12 o clock was biopsied. Left breast mass under the nipple was biopsied. Pathology results pending.
[2025-02-16] MEDS: SODIUM CHLORIDE 0.9% 1,000 ML IV SCH (14:52)
[2025-02-16] MEDS: DOXYCYCLINE 100MG/100ML 100 ML IV SCH (14:53)
[2025-02-16] MEDS: LIDOCAINE 2%HCL (LOCAL ANESTH.) INJ 10ml MDV ONE (14:53)
[2025-02-16] MEDS: ENOXAPARIN SOD 120 MG/0.8 ML SYRINGE SC ONE (17:02)
[2025-02-16 18:47] LABS: INR 1.01 (0.9-1.15); Partial Thromboplastin Time 26.4 SEC (24.5-34.5); Prothrombin Time 10.7 sec (9.3-11.8)
[2025-02-16] MEDS: IPRATROPIUM BROM 0.5 MG/2.5ML INH SOL NEB SCH (18:54)
[2025-02-16] MEDS: LEVALBUTEROL HCL 1.25 MG/3 ML NEB NEB SCH (18:54)
[2025-02-16] MEDS: QUEtiapine FUMARATE 100 MG TAB PO SCH (22:03)
[2025-02-16] MEDS: METHADONE HCL 10 MG TAB PO ONE (22:03)
[2025-02-16] MEDS: ENOXAPARIN SOD 120 MG/0.8 ML SYRINGE SC SCH (22:13)
[2025-02-17] VITALS (22 sets, daily range): BP systolic 96–110; BP diastolic 50–78; PULSE 70–87; RESP 18–20; TEMP 97.6–98.2; O2SAT 92–100
[2025-02-17 06:11] LABS: Basophils # (auto) 0 10 ^3/uL (0-0.2); Basophils % (auto) 0.2 % (0.0-2.0); Eosinophils # (auto) 0 10 ^3/uL (0-0.8); Eosinophils % (auto) 0.1 % (0.0-7.0); Hemoglobin 12.5 g/dL (12.2-16.2); Lymphocytes # (auto) 2.1 10 ^3/uL (0.4-5.4); Mean Corpuscular Volume 84.7 fL (80.0-100.0); Monocytes # (auto) 1.2 10 ^3/uL (0-1.3); Monocytes % (auto) 8.6 % (0.0-12.0); Neutrophils # (auto) 10.4 10 ^3/uL (1.6-8.6); Neutrophils % (auto) 76.1 % (37.0-80.0); Platelet Count (auto) 238 10^3/uL (140-450); Red Blood Cells 4.49 10^6/uL (4.0-5.20); Red Cell Distribution Width 15.9 % (11.8-14.3); White Blood Cell 13.7 10^3/uL (4.4-10.8)
[2025-02-17 07:20] LABS: Alanine Aminotransferase 15 U/L (7-40); Albumin 3.9 g/dL (3.2-4.8); Alkaline Phosphatase 60 U/L (46-116); Anion Gap 8 (5-15); Aspartate Aminotransferase 15 U/L (13-40); BUN/Creatinine Ratio 14.4 (10.0-20.0); Blood Urea Nitrogen 15 mg/dL (9-23); Carbon Dioxide 26 mmol/L (20-31); Chloride 106 mmol/L (98-107); Potassium 4.1 mmol/L (3.5-5.1); Sodium 140 mmol/L (136-145); Total Protein 6.4 g/dL (5.7-8.2)
[2025-02-17 07:21] LABS: Bilirubin, Total 0.4 mg/dL (0.2-1.0)
[2025-02-17 07:24] LABS: Calcium 8.6 mg/dL (8.7-10.4); Glucose 169 mg/dL (74-106)
--- NOTE | 2025-02-17 08:41 | DVHPNRES ---
Progress Note Date Seen: February 17, 2025 Resident Creating Document: ALEE PORTILLO RESIDENT Medical Necessity Reason Pt with a Central, PICC or Fol: No Subjective Review of Systems patient seen and examined at bed side complaining of left lower chest with deep breathing, better compare to yesterday greenish sputum no fever no chills regular bowel and bladder Objective vital signs Vital Sign Date Time Temp Pulse Resp B/P (MAP) Pulse Ox O2 Delivery O2 Flow Rate FiO2 02/17/25 08:00 85 20 94 Nasal Cannula* 3 32 02/17/25 05:00 97.7 101/62 (75) 97.7 Total Intake and Output 02/16/25 02/16/25 02/17/25 15:00 23:00 07:00 Intake Total 100 ml 900 ml Output Total 700 ml Balance 100 ml 200 ml medications Current Medications Medications Dose Ordered Sig/Terra Route Start Time Stop Time Status Last Admin Dose Admin Acetaminophen/ Hydrocodone Bitart 1 tab Q4HP PRN PO 02/16/25 03:15 02/17/25 05:13 1 TAB Acetaminophen 650 mg Q6HP PRN PO 02/16/25 03:15 Nitroglycerin 0.4 mg Q5MINP PRN SL 02/16/25 03:15 Doxycycline Hyclate 100 ml @ 50 mls/hr Q12H IV 02/16/25 15:00 02/17/25 03:01 50 MLS/HR Pantoprazole Sodium 40 mg DAILY IV 02/17/25 10:00 Diagnostic Test (Pha) 1 strip ACHS 02/16/25 07:00 02/17/25 06:52 1 STRIP Insulin Human Regular ACHS SC 02/16/25 07:00 02/17/25 06:15 2 UNITS Dextrose 50 ml UD PRN IV 02/16/25 03:15 Piperacillin Sod/ Tazobactam Sod 100 ml @ 25 mls/hr Q6HR IV 02/16/25 06:00 UNV Piperacillin Sod/ Tazobactam Sod 100 ml @ 25 mls/hr Q8HR IV 02/16/25 06:00 02/17/25 05:13 25 MLS/HR Levalbuterol HCl 1.25 mg Q4HR NEB 02/16/25 06:00 02/17/25 06:32 1.25 MG Ipratropium [place] 0.5 mg Q4HR NEB 02/16/25 06:00 02/17/25 06:33 0.5 MG Morphine Sulfate 1 mg Q6HP PRN IV 02/16/25 06:45 Sodium Chloride 1,000 ml @ 75 mls/hr [id number] IV 02/16/25 10:15 02/16/25 14:52 75 MLS/HR Enoxaparin Sodium 110 mg Q12HR SC 02/16/25 22:00 02/16/25 22:13 110 MG Methadone HCl 114 mg DAILY PO 02/17/25 10:00 Future Hold Quetiapine Fumarate 300 mg HS PO 02/16/25 22:00 02/16/25 22:03 300 MG Examination General Appearance: Cooperative. Well developed. Well nourished. NAD Head Exam: Normal inspection Neck Exam: Normal inspection. Non-tender. Normal alignment Pulmonary/Respiratory: Chest non-tender. Mild crackles over left lower lung base. No wheezing. Cardiovascular/Chest: Regular rate and rhythm. No murmurs. No JVD. Peripheral Pulses: 2+ Radial (R). 2+ Radial (L). 2+ Pedal (R). 2+ Pedal (L) Abdominal Exam: Normal bowel sounds. Soft. Nontender. No hepatospenomegaly. No masses Ankle Exam: Negative ankle edema Lower extremities: Negative lower extremity edema Neuro/Mental Status: A&O x4. Coherent Thoughts/Psych: Normal thought pattern. Appropriate mood and affect. Good judgement and insight Appearance: In no acute distress Skin Exam: Normal inspection. Normal color. Warm. Dry laboratory and microbiology Laboratory Tests 02/17/25 06:25 02/17/25 05:39 Test 02/17/25 06:25 Range/Units Serum Glucose 169 H 74-106 mg/dL Microbiology Date/Time Source Procedure Growth Status 02/16/25 07:20 Nose MRSA Screen - Final Complete 02/16/25 04:38 Blood Blood Culture - Preliminary NO GROWTH AFTER 24 HOURS OF INCUBATION. Resulted Problem List/Assessment/Plan Problem List/Assessment/Plan Acute pneumonia Gram-positive versus negative Sepsis due to above Acute hypoxic respiratory failure due to above Bilateral breast mass concerning for malignancy S/P Fine needle biopsy Chronic obstructive pulmonary disease exacerbation Pulmonary embolism, small PE in left lower segmental pulmonary artery. Diabetes mellitus type 2 HGB A1c 6.8 Ruled out acute pyelonephritis3 History of hypertension Hepatic steatosis Plan/recommendation -CT angio chest showed small pain left lower segmental pulmonary artery, initiated Lovenox therapeutic subcu 1 mg/kg twice daily. -CT chest also showed left lower lobe pneumonia, continue with antibiotic Zosyn and azithromycin. Pending sputum, negative Blood culture. -bilateral breast mass concerning for malignancy, radiology and surgery consultation has been done. S/P bilateral breast mass needle biopsy -new onset diabetes mellitus type 2, continue with insulin sliding scale. -breathing treatment and oxygen via nasal cannula. -IV fluid normal saline 75 mL/hour -PUD prophylaxis with Protonix -DVT prophylaxis with enoxaparin Goals of care discussed greater than 24 minutes. Full code status. Plan discussed with Dr. Gonzalez Plan discussed with: Patient, Other My Orders My Orders Orders - ALEE PORTILLO Procedure Category Date Status Time L Breast Ultrasound US 02/16/25 Resulted 10:06 R Breast Ultrasound US 02/16/25 Resulted 10:06 Sodium Chloride 0.9% PHA 02/16/25 In Process 10:15 * Radiologist Consult CONS 02/16/25 Transmitted 12:56 * Surgical Consult CONS 02/16/25 Transmitted Us Guidance For US 02/16/25 Resulted Needle Placeme Enoxaparin Sodium PHA 02/16/25 In Process (Lovenox) 22:00 Methadone Hcl Tablet PHA 02/17/25 In Process (Methadone Hcl Tabl 10:00 Quetiapine Fumarate PHA 02/16/25 In Process Tablet (Seroquel Tab 22:00 Lactic Acid W/ Reflex LAB 02/17/25 Logged Order 07:51 Date of Service: February 17, 2025 Billing Provider: NEW GONZALEZ MD Common Visit Codes: [id number] INP/OBS CARE(HIGH) ALEE PORTILLO RESIDENT February 17, 2025 08:41 NEW GONZALEZ MD February 17, 2025 22:23
[2025-02-17] MEDS: PANTOPRAZOLE 40 MG/10 ML VIAL INJ IV SCH (09:35)
[2025-02-17] MEDS: METHADONE HCL 10 MG TAB PO SCH (09:36)
[2025-02-17] MEDS: AZITHROMYCIN 250 MG TAB PO SCH (09:37)
[2025-02-17] MEDS ORDERED: METHADONE HCL 10 MG TAB PO SCH (10:00)
[2025-02-17] MEDS ORDERED: cefTRIAXone 2GM/50ML D5W 50 ML IV SCH (10:00)
[2025-02-18] VITALS (14 sets, daily range): BP systolic 114–148; BP diastolic 68–105; PULSE 75–110; RESP 16–21; TEMP 96–99.8; O2SAT 90–100
--- NOTE | 2025-02-18 10:48 | DVHPNRES ---
Progress Note Date Seen: February 18, 2025 Resident Creating Document: ALEE PORTILLO RESIDENT Medical Necessity Reason Pt with a Central, PICC or Fol: No Subjective Review of Systems patient seen and examined at bed side still has chest pain with deep breathing on room air saturating 100 % pain severe no fever Objective vital signs Vital Sign Date Time Temp Pulse Resp B/P (MAP) Pulse Ox O2 Delivery O2 Flow Rate FiO2 02/18/25 09:53 81 18 96 02/18/25 09:53 Nasal Cannula* 3 32 02/18/25 09:00 98.7 114/68 (83) 98.7 Total Intake and Output 02/17/25 02/17/25 02/18/25 15:00 23:00 07:00 Intake Total 588 ml 1000 ml Balance 588 ml 1000 ml medications Current Medications Medications Dose Ordered Sig/Terra Route Start Time Stop Time Status Last Admin Dose Admin Acetaminophen/ Hydrocodone Bitart 1 tab Q4HP PRN PO 02/16/25 03:15 02/18/25 03:22 1 TAB Acetaminophen 650 mg Q6HP PRN PO 02/16/25 03:15 Nitroglycerin 0.4 mg Q5MINP PRN SL 02/16/25 03:15 Pantoprazole Sodium 40 mg DAILY IV 02/17/25 10:00 02/18/25 09:16 40 MG Diagnostic Test (Pha) 1 strip ACHS 02/16/25 07:00 02/18/25 06:50 1 STRIP Insulin Human Regular ACHS SC 02/16/25 07:00 02/17/25 11:34 2 UNITS Dextrose 50 ml UD PRN IV 02/16/25 03:15 Piperacillin Sod/ Tazobactam Sod 100 ml @ 25 mls/hr Q6HR IV 02/16/25 06:00 UNV Piperacillin Sod/ Tazobactam Sod 100 ml @ 25 mls/hr Q8HR IV 02/16/25 06:00 02/18/25 05:11 25 MLS/HR Levalbuterol HCl 1.25 mg Q4HR NEB 02/16/25 06:00 02/18/25 09:53 1.25 MG Ipratropium [place] 0.5 mg Q4HR NEB 02/16/25 06:00 02/18/25 09:53 0.5 MG Morphine Sulfate 1 mg Q6HP PRN IV 02/16/25 06:45 Sodium Chloride 1,000 ml @ 75 mls/hr [id number] IV 02/16/25 10:15 02/18/25 03:46 75 MLS/HR Enoxaparin Sodium 110 mg Q12HR SC 02/16/25 22:00 02/18/25 09:18 110 MG Quetiapine Fumarate 300 mg HS PO 02/16/25 22:00 02/17/25 21:27 300 MG Azithromycin 500 mg DAILY PO 02/17/25 10:00 02/18/25 09:17 500 MG Methadone HCl 115 mg DAILY PO 02/17/25 10:00 02/18/25 09:16 115 MG Morphine Sulfate 2 mg Q4HPRN PRN IV 02/18/25 10:15 UNV Examination General Appearance: Cooperative. Well developed. Well nourished. NAD Head Exam: Normal inspection Neck Exam: Normal inspection. Non-tender. Normal alignment Pulmonary/Respiratory: Chest non-tender. Mild crackles over left lower lung base. No wheezing. Cardiovascular/Chest: Regular rate and rhythm. No murmurs. No JVD. Peripheral Pulses: 2+ Radial (R). 2+ Radial (L). 2+ Pedal (R). 2+ Pedal (L) Abdominal Exam: Normal bowel sounds. Soft. Nontender. No hepatospenomegaly. No masses Ankle Exam: Negative ankle edema Lower extremities: Negative lower extremity edema Neuro/Mental Status: A&O x4. Coherent Thoughts/Psych: Normal thought pattern. Appropriate mood and affect. Good judgement and insight Appearance: In no acute distress Skin Exam: Normal inspection. Normal color. Warm. Dry laboratory and microbiology Laboratory Tests 02/17/25 06:25 02/17/25 05:39 Test 02/17/25 06:25 Range/Units Serum Glucose 169 H 74-106 mg/dL Microbiology Date/Time Source Procedure Growth Status 02/16/25 07:20 Nose MRSA Screen - Final Complete 02/16/25 04:38 Blood Blood Culture - Preliminary NO GROWTH AFTER 48 HOURS OF INCUBATION. Resulted 02/16/25 03:30 Voided Urine Urine Culture - Final Complete Problem List/Assessment/Plan Problem List/Assessment/Plan Acute pneumonia Gram-positive versus negative Sepsis due to above Acute hypoxic respiratory failure due to above Bilateral breast mass concerning for malignancy S/P Fine needle biopsy Chronic obstructive pulmonary disease exacerbation Pulmonary embolism, small PE in left lower segmental pulmonary artery. Diabetes mellitus type 2 HGB A1c 6.8 Ruled out acute pyelonephritis3 History of hypertension Hepatic steatosis Plan/recommendation -CT angio chest showed small pain left lower segmental pulmonary artery, initiated Lovenox therapeutic subcu 1 mg/kg twice daily. -CT chest also showed left lower lobe pneumonia, continue with antibiotic Zosyn and azithromycin. Pending sputum, negative Blood culture. -bilateral breast mass concerning for malignancy, radiology and surgery consultation has been done. S/P bilateral breast mass needle biopsy -new onset diabetes mellitus type 2, continue with insulin sliding scale. -breathing treatment and oxygen via nasal cannula. -IV fluid normal saline 75 mL/hour -Pain management: Morphine 2 gm Q4 PRN -PUD prophylaxis with Protonix -DVT prophylaxis with enoxaparin Goals of care discussed greater than 24 minutes. Full code status. Plan discussed with Dr. Gonzalez Plan discussed with: Patient, Other My Orders My Orders Orders - ALEE PORTILLO Procedure Category Date Status Time Complete Blood Count LAB 02/18/25 Logged 09:01 Basic Metabolic Panel LAB 02/18/25 Logged 09:01 Chest Xray 1 View XY 02/18/25 Logged 10:14 Electrocardigram EKG 02/18/25 Logged 10:15 Morphine Sulfate PHA 02/18/25 Logged Injection 10:15 Morphine Sulfate PHA 02/18/25 Logged Injection 10:15 Date of Service: February 18, 2025 Billing Provider: NEW GONZALEZ MD Common Visit Codes: [id number] INP/OBS CARE(HIGH) ALEE PORTILLO February 18, 2025 10:48 NEW GONZALEZ MD February 18, 2025 22:11
[2025-02-18] MEDS: MORPHINE SULFATE INJ 2 MG/ml SYRG IV ONE (10:51)
[2025-02-18] MEDS: MORPHINE SULFATE INJ 2 MG/ml SYRG IV PRN ×2 (11:10→18:12)
[2025-02-18 11:14] LABS: Basophils # (auto) 0 10 ^3/uL (0-0.2); Basophils % (auto) 0.3 % (0.0-2.0); Eosinophils # (auto) 0.2 10 ^3/uL (0-0.8); Eosinophils % (auto) 1.6 % (0.0-7.0); Hematocrit 40.2 % (36.0-46.0); Hemoglobin 13.2 g/dL (12.2-16.2); Lymphocytes # (auto) 2.3 10 ^3/uL (0.4-5.4); Lymphocytes % (auto) 22.7 % (10.0-50.0); Mean Corpuscular Hgb Conc. 32.8 g/dL (32.0-36.0); Mean Corpuscular Volume 85.2 fL (80.0-100.0); Monocytes # (auto) 1.1 10 ^3/uL (0-1.3); Monocytes % (auto) 11.3 % (0.0-12.0); Neutrophils # (auto) 6.5 10 ^3/uL (1.6-8.6); Neutrophils % (auto) 64.1 % (37.0-80.0); Nucleated Red Blood Cells % 0.1 %; Platelet Count (auto) 243 10^3/uL (140-450); Red Blood Cells 4.72 10^6/uL (4.0-5.20); Red Cell Distribution Width 15.8 % (11.8-14.3); White Blood Cell 10.2 10^3/uL (4.4-10.8)
[2025-02-18 11:22] LABS: Chloride 104 mmol/L (98-107); Potassium 4.1 mmol/L (3.5-5.1); Sodium 138 mmol/L (136-145)
[2025-02-18 11:23] LABS: Anion Gap 8 (5-15); Calcium 8.9 mg/dL (8.7-10.4); Carbon Dioxide 26 mmol/L (20-31)
[2025-02-18 11:28] LABS: BUN/Creatinine Ratio 12.9 (10.0-20.0); Blood Urea Nitrogen 13 mg/dL (9-23); Glucose 140 mg/dL (74-106)
--- NOTE | 2025-02-18 12:42 | ECG ---
[facility], [place] Test Date: 2025-02-18 Test Time: 10:10:45 Pat Name: CLIFF TEMPLETON Department: Respiratoy Room: 0246T A Gender: F Digital Associate Media Director: KDSAMAN : [id number] Requested By: ALEE PORTILLO Order Number: [id number] Reading MD: Luciano Villegas Measurements Intervals [place] Rate: 90 P: 46 IN: 141 QRS: 56 QRSD: 93 T: 34 QT: 362 QTc: 443 Interpretive Statements Sinus rhythm Electronically Signed On 02-22-2025 10:41:06 PDT by Luciano Villegas Please click the below link to view image of tracing.
--- NOTE | 2025-02-18 13:41 | DVH ---
CHEST RADIOGRAPH Indication: left lower lobe pneumonia Technique: Single frontal view of the chest was obtained Comparison: XY CHEST XRAY 1 VIEW on DOS: 02/16/25 FINDINGS: Lines and Tubes: None Lungs: No focal consolidation. Pleura: No effusion. No pneumothorax. Cardiomediastinal contours: Unremarkable Bones: No acute osseous abnormality. IMPRESSION: Cardiomegaly with CHF
[2025-02-18] MEDS: FUROSEMIDE 40 MG/4 ML VIAL IV ONE (14:15)
[2025-02-18] MEDS: ACETAMINOPHEN 325 MG TAB PO PRN (21:41)
[2025-02-19] VITALS (18 sets, daily range): BP systolic 95–132; BP diastolic 59–79; PULSE 70–110; RESP 16–22; TEMP 96.8–100.2; O2SAT 91–100
[2025-02-19] MEDS: LORazepam 0.5 MG TAB PO PRN (06:13)
--- NOTE | 2025-02-19 09:04 | DVHSR ---
APPROVED REPORT EXAM: LIMITED Two-dimensional and M-mode echocardiogram with Doppler and color Doppler. Blood Pressure: 130/71 mmHg INDICATION rule out chf RISK FACTORS Obesity: Height: 5'2, Weight: 236 DIMENSIONS LVDd4.9 (3.8-5.7cm)LA (2D)4.4 (1.9-4.0cm)Aortic Root3.3 (2.0-3.7cm) LVDs3.2 (2.5-4.0cm)LA (MM) (1.9-4.0cm)Aortic Cusp Exc1.9 (1.5-2.0cm) EF (%) 60.0 (55-70%)Rt. Atrium3.1 (1.9-4.0cm)Asc. Aorta3.8 cm IVSd0.9 (0.7-1.1cm)RV (D) (1.8-2.4cm) PWd1.0 (0.7-1.1cm) Mitral Valve MitralMitral Stenosis E wave1.03m/sMV Mean GR.mmHg A wave1.11m/sMV Peak GR.44mmHg E/A ratio0.92D MVAcm2 DECEL [id number] 1/2 [place] Aortic Valve Aortic ValveAortic Stenosis V11.24m/Skyler Mean GR.5mmHg V21.50m/Skyler Peak GR.9mmHg LVOT Diameter1.9 (1.8-2.4cm)Doppler AVA2.34cm2 Pulmonic Valve V21.19m/s Tricuspid Valve TR Velocity2.70m/s [id number] Conclusion Technically good study sinus rhythm. Left atrial enlargement. Valves are normal. 65% ejection fraction with normal RV function. Mild TR. No pericardial effusion masses or vegetations.
[2025-02-19] MEDS: FUROSEMIDE 40 MG/4 ML VIAL IV SCH (09:55)
--- NOTE | 2025-02-19 17:29 | DVHPNRES ---
Progress Note Date Seen: February 19, 2025 Resident Creating Document: ALEE PORTILLO RESIDENT Medical Necessity Reason Pt with a Central, PICC or Fol: No Subjective Review of Systems patient seen and examined at bed side still chest pleuritic chest pain with breathing on room air no fever , chills Objective vital signs Vital Sign Date Time Temp Pulse Resp B/P (MAP) Pulse Ox O2 Delivery O2 Flow Rate FiO2 02/19/25 16:54 96.8 74 18 95/59 (71) 100 96.8 02/19/25 14:41 Nasal Cannula 4.0 02/19/25 14:41 36 Total Intake and Output 02/18/25 02/18/25 02/19/25 15:00 23:00 07:00 Intake Total 100 ml 750 ml 100 ml Balance 100 ml 750 ml 100 ml medications Current Medications Medications Dose Ordered Sig/Terra Route Start Time Stop Time Status Last Admin Dose Admin Acetaminophen/ Hydrocodone Bitart 1 tab Q4HP PRN PO 02/16/25 03:15 02/19/25 13:53 1 TAB Acetaminophen 650 mg Q6HP PRN PO 02/16/25 03:15 02/18/25 21:41 650 MG Nitroglycerin 0.4 mg Q5MINP PRN SL 02/16/25 03:15 Pantoprazole Sodium 40 mg DAILY IV 02/17/25 10:00 02/19/25 09:11 40 MG Diagnostic Test (Pha) 1 strip ACHS 02/16/25 07:00 02/19/25 16:42 1 STRIP Insulin Human Regular ACHS SC 02/16/25 07:00 02/19/25 11:24 3 UNITS Dextrose 50 ml UD PRN IV 02/16/25 03:15 Piperacillin Sod/ Tazobactam Sod 100 ml @ 25 mls/hr Q6HR IV 02/16/25 06:00 UNV Piperacillin Sod/ Tazobactam Sod 100 ml @ 25 mls/hr Q8HR IV 02/16/25 06:00 02/19/25 13:54 25 MLS/HR Levalbuterol HCl 1.25 mg Q4HR NEB 02/16/25 06:00 02/19/25 14:41 1.25 MG Ipratropium [place] 0.5 mg Q4HR NEB 02/16/25 06:00 02/19/25 14:41 0.5 MG Enoxaparin Sodium 110 mg Q12HR SC 02/16/25 22:00 02/19/25 09:13 110 MG Quetiapine Fumarate 300 mg HS PO 02/16/25 22:00 02/18/25 21:20 300 MG Azithromycin 500 mg DAILY PO 02/17/25 10:00 02/19/25 09:12 500 MG Methadone HCl 115 mg DAILY PO 02/17/25 10:00 02/19/25 09:15 115 MG Morphine Sulfate 4 mg Q6HPRN PRN IV 02/18/25 15:00 02/19/25 15:12 4 MG Furosemide 40 mg DAILY IV 02/19/25 10:00 02/19/25 09:55 40 MG Lorazepam 0.5 mg Q8HP PRN PO 02/18/25 14:15 02/19/25 17:28 0.5 MG Examination General Appearance: Cooperative. Well developed. Well nourished. NAD Head Exam: Normal inspection Neck Exam: Normal inspection. Non-tender. Normal alignment Pulmonary/Respiratory: Chest non-tender. Mild crackles over left lower lung base. No wheezing. Cardiovascular/Chest: Regular rate and rhythm. No murmurs. No JVD. Peripheral Pulses: 2+ Radial (R). 2+ Radial (L). 2+ Pedal (R). 2+ Pedal (L) Abdominal Exam: Normal bowel sounds. Soft. Nontender. No hepatospenomegaly. No masses Ankle Exam: Negative ankle edema Lower extremities: Negative lower extremity edema Neuro/Mental Status: A&O x4. Coherent Thoughts/Psych: Normal thought pattern. Appropriate mood and affect. Good judgement and insight Appearance: In no acute distress Skin Exam: Normal inspection. Normal color. Warm. Dry laboratory and microbiology Laboratory Tests 02/18/25 10:58 Test 02/18/25 10:58 Range/Units Serum Glucose 140 H 74-106 mg/dL Microbiology Date/Time Source Procedure Growth Status 02/16/25 07:20 Nose MRSA Screen - Final Complete 02/16/25 04:38 Blood Blood Culture - Preliminary NO GROWTH AFTER 72 HOURS OF INCUBATION. Resulted 02/16/25 03:30 Voided Urine Urine Culture - Final Complete Problem List/Assessment/Plan Problem List/Assessment/Plan Acute pneumonia Gram-positive versus negative Sepsis due to above Acute hypoxic respiratory failure due to above Acute diastolic heart failure Bilateral breast mass concerning for malignancy S/P Fine needle biopsy Chronic obstructive pulmonary disease exacerbation Pulmonary embolism, small PE in left lower segmental pulmonary artery. Diabetes mellitus type 2 HGB A1c 6.8 Ruled out acute pyelonephritis3 History of hypertension Hepatic steatosis Plan/recommendation -CT angio chest showed small pain left lower segmental pulmonary artery, initiated Lovenox therapeutic subcu 1 mg/kg twice daily. -CT chest also showed left lower lobe pneumonia, continue with antibiotic Zosyn and azithromycin. Pending sputum, negative Blood culture. -bilateral breast mass concerning for malignancy, radiology and surgery consultation has been done. S/P bilateral breast mass needle biopsy -IV lasix 40 mg daily -new onset diabetes mellitus type 2, continue with insulin sliding scale. -breathing treatment and oxygen via nasal cannula. -IV fluid normal saline 75 mL/hour -Pain management: Morphine 2 gm Q4 PRN -PUD prophylaxis with Protonix -DVT prophylaxis with enoxaparin Goals of care discussed greater than 24 minutes. Full code status. Plan discussed with Dr. Gonzalez Plan discussed with: Patient, Other (RN) Date of Service: February 19, 2025 Billing Provider: NEW GONZALEZ MD Common Visit Codes: [id number] INP/OBS CARE(HIGH) ALEE PORTILLO RESIDENT February 19, 2025 17:29 NEW GONZALEZ MD February 19, 2025 23:22
[2025-02-20] VITALS (18 sets, daily range): BP systolic 88–115; BP diastolic 42–66; PULSE 76–100; RESP 17–21; TEMP 98.5–100.3; O2SAT 90–98
[2025-02-20 07:14] LABS: Basophils # (auto) 0 10 ^3/uL (0-0.2); Basophils % (auto) 0.2 % (0.0-2.0); Eosinophils # (auto) 0.2 10 ^3/uL (0-0.8); Eosinophils % (auto) 1.7 % (0.0-7.0); Hemoglobin 13.3 g/dL (12.2-16.2); Lymphocytes # (auto) 2.1 10 ^3/uL (0.4-5.4); Lymphocytes % (auto) 19.8 % (10.0-50.0); Mean Corpuscular Hemoglobin 27.8 pg (28.0-32.0); Mean Corpuscular Hgb Conc. 33.4 g/dL (32.0-36.0); Mean Corpuscular Volume 83.4 fL (80.0-100.0); Monocytes # (auto) 1.1 10 ^3/uL (0-1.3); Monocytes % (auto) 10.7 % (0.0-12.0); Neutrophils # (auto) 7.2 10 ^3/uL (1.6-8.6); Neutrophils % (auto) 67.6 % (37.0-80.0); Nucleated Red Blood Cells % 0.1 %; Platelet Count (auto) 286 10^3/uL (140-450); Red Cell Distribution Width 15.9 % (11.8-14.3); White Blood Cell 10.7 10^3/uL (4.4-10.8)
[2025-02-20 07:23] LABS: Anion Gap 11 (5-15); Carbon Dioxide 28 mmol/L (20-31); Potassium 3.6 mmol/L (3.5-5.1); Sodium 137 mmol/L (136-145)
[2025-02-20 07:24] LABS: Calcium 9.7 mg/dL (8.7-10.4)
[2025-02-20 07:29] LABS: BUN/Creatinine Ratio 16.7 (10.0-20.0); Blood Urea Nitrogen 20 mg/dL (9-23)
[2025-02-20 07:30] LABS: Chloride 98 mmol/L (98-107); Glucose 135 mg/dL (74-106)
--- NOTE | 2025-02-20 10:22 | DVHPNRES ---
Progress Note Date Seen: February 20, 2025 Resident Creating Document: ALEE PORTILLO RESIDENT Medical Necessity Reason Pt with a Central, PICC or Fol: No Subjective Review of Systems Patient seen and examined at bedside Continued complaining of left lower chest/flank pain, mainly worsened with breathing. No pain worsening with palpation. On 4 L oxygen Continue on pain meds, methadone/morphine. No complaint of fever, chills, abdominal pain, any other symptoms. Objective vital signs Vital Sign Date Time Temp Pulse Resp B/P (MAP) Pulse Ox O2 Delivery O2 Flow Rate FiO2 02/20/25 10:02 108/66 02/20/25 09:12 94 Nasal Cannula* 4 36 02/20/25 09:00 98.5 80 18 98.5 Total Intake and Output 02/19/25 02/19/25 02/20/25 15:00 23:00 07:00 Intake Total 100 ml 560 ml 100 ml Balance 100 ml 560 ml 100 ml medications Current Medications Medications Dose Ordered Sig/Terra Route Start Time Stop Time Status Last Admin Dose Admin Acetaminophen/ Hydrocodone Bitart 1 tab Q4HP PRN PO 02/16/25 03:15 02/20/25 09:45 1 TAB Acetaminophen 650 mg Q6HP PRN PO 02/16/25 03:15 02/18/25 21:41 650 MG Nitroglycerin 0.4 mg Q5MINP PRN SL 02/16/25 03:15 Pantoprazole Sodium 40 mg DAILY IV 02/17/25 10:00 02/20/25 10:02 40 MG Diagnostic Test (Pha) 1 strip ACHS 02/16/25 07:00 02/20/25 06:08 1 STRIP Insulin Human Regular ACHS SC 02/16/25 07:00 02/20/25 06:09 2 UNITS Dextrose 50 ml UD PRN IV 02/16/25 03:15 Piperacillin Sod/ Tazobactam Sod 100 ml @ 25 mls/hr Q6HR IV 02/16/25 06:00 UNV Piperacillin Sod/ Tazobactam Sod 100 ml @ 25 mls/hr Q8HR IV 02/16/25 06:00 02/20/25 05:20 25 MLS/HR Levalbuterol HCl 1.25 mg Q4HR NEB 02/16/25 06:00 02/19/25 18:50 1.25 MG Ipratropium [place] 0.5 mg Q4HR NEB 02/16/25 06:00 02/19/25 18:50 0.5 MG Enoxaparin Sodium 110 mg Q12HR SC 02/16/25 22:00 02/20/25 10:02 110 MG Quetiapine Fumarate 300 mg HS PO 02/16/25 22:00 02/19/25 21:06 300 MG Azithromycin 500 mg DAILY PO 02/17/25 10:00 02/20/25 10:02 500 MG Methadone HCl 115 mg DAILY PO 02/17/25 10:00 02/20/25 10:03 115 MG Furosemide 40 mg DAILY IV 02/19/25 10:00 02/20/25 10:02 40 MG Lorazepam 0.5 mg Q8HP PRN PO 02/18/25 14:15 02/19/25 17:28 0.5 MG Morphine Sulfate 2 mg Q4HPRN PRN IV 02/20/25 10:15 UNV Examination General Appearance: Cooperative. Well developed. Well nourished. NAD Head Exam: Normal inspection Neck Exam: Normal inspection. Non-tender. Normal alignment Pulmonary/Respiratory: Chest non-tender. Mild crackles over left lower lung base. No wheezing. Cardiovascular/Chest: Regular rate and rhythm. No murmurs. No JVD. Peripheral Pulses: 2+ Radial (R). 2+ Radial (L). 2+ Pedal (R). 2+ Pedal (L) Abdominal Exam: Normal bowel sounds. Soft. Nontender. No hepatospenomegaly. No masses Ankle Exam: Negative ankle edema Lower extremities: Negative lower extremity edema Neuro/Mental Status: A&O x4. Coherent Thoughts/Psych: Normal thought pattern. Appropriate mood and affect. Good judgement and insight Appearance: In no acute distress Skin Exam: Normal inspection. Normal color. Warm. Dry laboratory and microbiology Laboratory Tests 02/20/25 06:34 Test 02/20/25 06:34 Range/Units Serum Glucose 135 H 74-106 mg/dL Microbiology Date/Time Source Procedure Growth Status 02/16/25 07:20 Nose MRSA Screen - Final Complete 02/16/25 04:38 Blood Blood Culture - Preliminary NO GROWTH AFTER 72 HOURS OF INCUBATION. Resulted 02/16/25 03:30 Voided Urine Urine Culture - Final Complete Problem List/Assessment/Plan Problem List/Assessment/Plan Acute pneumonia Gram-positive versus negative Sepsis due to above Pulmonary embolism, small PE in left lower segmental pulmonary artery. 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 Can not rule out low-grade phyllodes tumor. Chronic obstructive pulmonary disease exacerbation Diabetes mellitus type 2 HGB A1c 6.8 Ruled out acute pyelonephritis3 History of hypertension Hepatic steatosis Plan/recommendation -CT angio chest showed small pain left lower segmental pulmonary artery, initiated Lovenox therapeutic subcu 1 mg/kg twice daily. -CT chest also showed left lower lobe pneumonia, continue with antibiotic Zosyn and azithromycin. Pending sputum, negative Blood culture. -bilateral breast mass concerning for malignancy, radiology and surgery consultation has been done. S/P bilateral breast mass needle biopsy -IV lasix 40 mg daily -new onset diabetes mellitus type 2, continue with insulin sliding scale. -breathing treatment and oxygen via nasal cannula. -IV fluid normal saline 75 mL/hour -Pain management: Morphine 2 gm Q4 PRN -PUD prophylaxis with Protonix -DVT prophylaxis with enoxaparin Pathology report of left and right breast mass. Reported on 02/18/2025. Right breast mass shows fibroepithelial lesion with focal increase in stromal cellularity. No significant cytologic atypia, mitotic activity or necrosis is seen. Findings could present a cellular fibroadenoma. However low-grade phyllodes tumor can not be excluded. Patient will need excisional biopsy to evaluate entire lesion. Goals of care discussed greater than 24 minutes. Full code status. Plan discussed with Dr. Gonzalez Patient continued to have left flank pain, pleuritic chest pain. Continued antibiotic Zosyn azithromycin, with pain management morphine and methadone. Biopsy results came back likely fibroadenoma. Surgery consultation has been done, possible excisional biopsy and inpatient versus outpatient based on surgical evaluation. Continue with current management for PE with therapeutic Lovenox at this point. Plan discussed with: Patient, Other (RN) My Orders My Orders Orders - ALEE PORTILLO RESIDENT Procedure Category Date Status Time Morphine Sulfate PHA 02/20/25 Logged Injection 10:15 Date of Service: February 20, 2025 Billing Provider: NEW GONZALEZ MD Common Visit Codes: [id number] INP/OBS CARE(HIGH) ALEE PORTILLO RESIDENT February 20, 2025 10:22 NEW GONZALEZ MD February 21, 2025 08:17
[2025-02-20] MEDS: MORPHINE SULFATE INJ 2 MG/ml SYRG IV PRN (11:30)
[2025-02-21] VITALS (16 sets, daily range): BP systolic 101–111; BP diastolic 55–69; PULSE 61–96; RESP 16–20; TEMP 97.5–99; O2SAT 85–100
[2025-02-21 08:18] LABS: Basophils # (auto) 0 10 ^3/uL (0-0.2); Basophils % (auto) 0.2 % (0.0-2.0); Eosinophils # (auto) 0.2 10 ^3/uL (0-0.8); Eosinophils % (auto) 2.4 % (0.0-7.0); Hematocrit 39.3 % (36.0-46.0); Hemoglobin 12.8 g/dL (12.2-16.2); Lymphocytes # (auto) 2.1 10 ^3/uL (0.4-5.4); Mean Corpuscular Hemoglobin 27.4 pg (28.0-32.0); Mean Corpuscular Hgb Conc. 32.5 g/dL (32.0-36.0); Mean Corpuscular Volume 84.1 fL (80.0-100.0); Monocytes # (auto) 0.9 10 ^3/uL (0-1.3); Monocytes % (auto) 10.6 % (0.0-12.0); Neutrophils # (auto) 5.6 10 ^3/uL (1.6-8.6); Neutrophils % (auto) 62.8 % (37.0-80.0); Nucleated Red Blood Cells % 0.1 %; Platelet Count (auto) 283 10^3/uL (140-450); Red Blood Cells 4.68 10^6/uL (4.0-5.20); Red Cell Distribution Width 15.6 % (11.8-14.3); White Blood Cell 8.9 10^3/uL (4.4-10.8)
[2025-02-21 08:27] LABS: Chloride 99 mmol/L (98-107); Potassium 3.7 mmol/L (3.5-5.1); Sodium 137 mmol/L (136-145)
[2025-02-21 08:28] LABS: Anion Gap 9 (5-15); Calcium 9.5 mg/dL (8.7-10.4); Carbon Dioxide 29 mmol/L (20-31)
[2025-02-21 08:33] LABS: BUN/Creatinine Ratio 17.2 (10.0-20.0); Blood Urea Nitrogen 17 mg/dL (9-23)
[2025-02-21 08:36] LABS: Glucose 116 mg/dL (74-106)
--- NOTE | 2025-02-21 09:26 | DVHINCON2 ---
Date of service: February 21, [address] Gonzalez History of Present Illness History Source: Patient, RN Notes, MD Notes Exam Limitations: No limitations HPI 64F w morbid obesity and DM2 admitted w CP and SOB found to have PNA and a small segmental PE currently on therapeutic lovenox requiring 4L supp oxygen. Pgt noted to have b/l breast masses on CT Chest and underwent a core needle bx which resulted in likely fibroadenoma but could not rule out low grade phyllodes. Surgery consulted for excisional biopsy. Home Meds Reported Medications Methadone Hcl (METHADONE HCL TABLET) 10 Mg Tb, 140 MG PO DAILY, TAB 02/16/25 Quetiapine Fumerate (QUETIAPINE FUMARATE) 300 Mg Tab, 1-2 TAB PO 02/16/25 Past Medical History Patient Family History: Diabetes mellitus G8 FATHER Review of Systems Constitutional: No symptom reported Ears, Nose, & Throat: No symptom reported Eyes: No symptom reported Pulmonary/Respiratory: Pleuritic Chest Pain Cardiovascular: Chest Pain Gastrointestinal: Abdominal Pain Genitourinary: No symptom reported Musculoskeletal: Muscle pain Skin: No symptom reported Psychiatric: No symptom reported Endocrine: No symptom reported Hemotologic/Lymphatic: No symptom reported H&P Exam Vital Signs Vital Signs Date Time Temp Pulse Resp B/P (MAP) Pulse Ox O2 Delivery O2 Flow Rate FiO2 02/21/25 08:00 18 98 Nasal Cannula* 4 36 02/21/25 07:54 61 111/61 02/21/25 05:00 98.4 98.4 General Appeara: Normal Appearance, Obese Head Exam: Normal inspection Neck Exam: Normal inspection Eye Exam: bilateral eye Normal inspection, bilateral eye PERRL, bilateral eye EOMI Pulmonary/Respiratory: Normal inspection Cardiovascular/Chest: Normal inspection Abdominal Exam: Normal bowel sounds, Soft, No tenderness Rectal Exam: Deferred Neuro/Mental St: Alert, Oriented Skin Exam: Normal inspection, Normal color, Warm/dry Labs/Xrays Labs Test 02/21/25 08:10 02/21/25 06:01 02/20/25 06:34 02/17/25 08:48 Range/Units White Blood Count 8.9 4.4-10.8 10^3/uL Red Blood Count 4.68 4.0-5.20 10^6/uL Hemoglobin 12.8 12.2-16.2 g/dL Hematocrit 39.3 36.0-46.0 % Mean Corpuscular Volume 84.1 80.0-100.0 fL Mean Corpuscular Hemoglobin 27.4 L 28.0-32.0 pg Mean Corpuscular Hemoglobin Concent 32.5 32.0-36.0 g/dL Red Cell Distribution Width 15.6 H 11.8-14.3 % Platelet Count 283 140-450 10^3/uL Mean Platelet Volume 7.1 6.9-10.8 fL Neutrophils (%) (Auto) 62.8 37.0-80.0 % Lymphocytes (%) (Auto) 24.0 10.0-50.0 % Monocytes (%) (Auto) 10.6 0.0-12.0 % Eosinophils (%) (Auto) 2.4 0.0-7.0 % Basophils (%) (Auto) 0.2 0.0-2.0 % Neutrophils # (Auto) 5.6 1.6-8.6 10 ^3/uL Lymphocytes # (Auto) 2.1 0.4-5.4 10 ^3/uL Monocytes # (Auto) 0.9 0-1.3 10 ^3/uL Eosinophils # (Auto) 0.2 0-0.8 10 ^3/uL Basophils # (Auto) 0 0-0.2 10 ^3/uL Nucleated Red Blood Cells 0.1 % Sodium Level 137 136-145 mmol/L Potassium Level 3.7 3.5-5.1 mmol/L Chloride Level 99 98-107 mmol/L Carbon Dioxide Level 29 20-31 mmol/L Anion Gap 9 5-15 Blood Urea Nitrogen 17 9-23 mg/dL Creatinine 0.99 0.550-1.02 mg/dL Glomerular Filtration Rate Calc 63 >90 mL/min BUN/Creatinine Ratio 17.2 10.0-20.0 Serum Glucose 116 H 74-106 mg/dL Calcium Level 9.5 8.7-10.4 mg/dL POC Glucose 114 H 70-106 mg/dl Magnesium Level 2.4 1.6-2.6 mg/dL Lactic Acid Level 1.2 0.4-2.0 mmol/L Test 02/17/25 06:25 02/16/25 18:04 02/16/25 11:30 02/16/25 07:35 Range/Units Total Bilirubin 0.4 0.2-1.0 mg/dL Aspartate Amino Transferase (AST) 15 13-40 U/L Alanine Aminotransferase (ALT) 15 7-40 U/L Alkaline Phosphatase 60 46-116 U/L Total Protein 6.4 5.7-8.2 g/dL Albumin 3.9 3.2-4.8 g/dL Prothrombin Time 10.7 9.3-11.8 sec Prothrombin Time INR 1.01 0.9-1.15 Activated Partial Thromboplast Time 26.4 24.5-34.5 SEC Troponin I High Sensitivity < 3 L </=34 ng/L Influenza Type A Antigen Negative Negative Influenza Type B Antigen Negative Negative SARS-CoV-2 Antigen (Rapid) Negative NEGATIVE Test 02/16/25 04:38 02/16/25 03:30 02/16/25 01:50 Range/Units D-Dimer, Quantitative 1.40 H 0.0-0.49 mg/L FEU Thyroid Stimulating Hormone (TSH) 1.85 0.55-4.78 uIU/mL Plasma/Serum Blood Alcohol < 3.0 <10 mg/dL Urine Color Yellow Yellow Urine Clarity Clear Clear Urine pH 5.5 5.0-9.0 Urine Specific [place] 1.023 1.001-1.035 Urine Protein Trace H Negative Urine Ketones Negative Negative Urine Blood Negative Negative /uL Urine Nitrite Negative Negative Urine Bilirubin Negative Negative Urine Urobilinogen Normal Negative mg/dL Urine Leukocyte Esterase Trace Negative /uL Urine RBC None seen 0 - 4 /hpf Urine Microscopic WBC 4 0-5 /HPF Urine Squamous Epithelial Cells Few <5 /hpf Urine Bacteria None seen None Seen /hpf Urine Mucus Few None Seen Urine Glucose Trace Normal mg/dL Urine Opiates Screen Neg NEGATIVE Urine Fentanyl Screen Neg NEGATIVE Urine Barbiturates Screen Neg NEGATIVE Urine Phencyclidine Screen Neg NEGATIVE Urine Amphetamines Screen Neg NEGATIVE Urine Benzodiazepines Screen Neg NEGATIVE Urine Cocaine Screen Neg NEGATIVE Urine Cannabinoids Screen Neg NEGATIVE Hemoglobin A1c 6.8 H <5.7 % A1C B-Type Natriuretic Peptide 6.70 0-100 pg/mL Microbiology Date/Time Source Procedure Growth Status 02/19/25 09:58 Sputum Gram Stain Pending Resulted 02/19/25 09:58 Sputum Respiratory Culture - Preliminary Resulted 02/16/25 07:20 Nose MRSA Screen - Final Complete 02/16/25 04:38 Blood Blood Culture - Final NO GROWTH AFTER 5 DAYS OF INCUBATION. Complete 02/16/25 03:30 Voided Urine Urine Culture - Final Complete Assessment/Plan Problem List: (1) Pulmonary embolism (2) Breast mass (3) Pneumonia (4) COPD exacerbation Primary Diagnosis pneumonia Admitting Diagnosis: pneumonia 2' Diagnosis/Co-morbidities morbid obesity DM2 Breast mass pulmonary embolism COPD acute hypoxia Plan 64F w morbid obesity and DM2 admitted w CP and SOB found to have PNA and a small segmental PE currently on therapeutic lovenox requiring 4L supp oxygen w SaO2 90-92. Pgt noted to have b/l breast masses on CT Chest and underwent a core needle bx which resulted in likely fibroadenoma but could not rule out low grade phyllodes. Surgery consulted for excisional biopsy. pt currently high risk for general anesthesia given newly found PE and respi function w ongoing supplemental O2 requirement no emergent surgical interventions, excisional biopsy can be done in an out- patient setting pt should be given surgical clinic contact information to schedule an appointment with our clinic or a surgeon if her choice risks of delaying followup emphasized and should again be reiterated prior to d/c as delaying w/u can increase risk for potential advancement of malignancy Plan discussed with: Patient Visit Coding Surgery Date of Service if different f: February 21, 2025 Billing Provider: AURELIO SPANN MD Surgery Visit Codes: [id number] - INP CONSULT <55 MIN AURELIO SPANN MD February 21, 2025 09:25
--- NOTE | 2025-02-21 13:26 | DVHPN2 ---
Subjective The patient is seen and examined at bedside. The patient is still complain of pain of the chest when take a deep breath Reviewed: Care Plan, H&P, Labs, Medications, Previous Orders, Radiology Changes from previous H/P or p: No Changes Objective Vitals Vital Signs Date Time Temp Pulse Resp B/P (MAP) Pulse Ox O2 Delivery O2 Flow Rate FiO2 02/21/25 10:34 111/61 02/21/25 09:00 98.8 83 18 92 98.8 02/21/25 08:00 Nasal Cannula* 4 36 Intake/Output Intake and Output 02/21/25 07:00 Intake Total 325 ml Balance 325 ml Intake Oral 125 ml IV Total 200 ml General Appearance: Alert, Oriented X3, Cooperative, mild distress HEENT: Atraumatic, PERRLA, EOMI, Mucous membr. moist/pink Neck: Supple Lungs: Clear to auscultation, Normal air movement Cardiovascular: Regular rate, Normal S1, Normal S2, No murmurs, Gallops, Rubs Abdomen: Normal bowel sounds, Soft, No tenderness Neuro: Cranial nerves 3-12 NL Psych/Mental Status: Mental status NL Medications Current Medications Medications Dose Ordered Sig/Terra Route Start Time Stop Time Status Last Admin Dose Admin Acetaminophen/ Hydrocodone Bitart 1 tab Q4HP PRN PO 02/16/25 03:15 02/20/25 09:45 1 TAB Acetaminophen 650 mg Q6HP PRN PO 02/16/25 03:15 02/18/25 21:41 650 MG Nitroglycerin 0.4 mg Q5MINP PRN SL 02/16/25 03:15 Pantoprazole Sodium 40 mg DAILY IV 02/17/25 10:00 02/21/25 10:33 40 MG Diagnostic Test (Pha) 1 strip ACHS 02/16/25 07:00 02/21/25 11:50 1 STRIP Insulin Human Regular ACHS SC 02/16/25 07:00 02/21/25 11:50 3 UNITS Dextrose 50 ml UD PRN IV 02/16/25 03:15 Piperacillin Sod/ Tazobactam Sod 100 ml @ 25 mls/hr Q6HR IV 02/16/25 06:00 UNV Piperacillin Sod/ Tazobactam Sod 100 ml @ 25 mls/hr Q8HR IV 02/16/25 06:00 02/21/25 05:05 25 MLS/HR Levalbuterol HCl 1.25 mg Q4HR NEB 02/16/25 06:00 02/21/25 07:44 1.25 MG Ipratropium [place] 0.5 mg Q4HR NEB 02/16/25 06:00 02/21/25 07:44 0.5 MG Enoxaparin Sodium 110 mg Q12HR SC 02/16/25 22:00 02/21/25 10:34 110 MG Quetiapine Fumarate 300 mg HS PO 02/16/25 22:00 02/20/25 21:17 300 MG Azithromycin 500 mg DAILY PO 02/17/25 10:00 02/21/25 10:33 500 MG Methadone HCl 115 mg DAILY PO 02/17/25 10:00 02/21/25 10:35 115 MG Furosemide 40 mg DAILY IV 02/19/25 10:00 02/21/25 10:34 40 MG Lorazepam 0.5 mg Q8HP PRN PO 02/18/25 14:15 02/21/25 10:46 0.5 MG Morphine Sulfate 2 mg Q4HPRN PRN IV 02/20/25 10:15 02/21/25 07:54 2 MG Laboratory Results Laboratory Tests 02/21/25 08:10 Chemistry Test 02/21/25 08:10 Calcium Level 9.5 mg/dL (8.7-10.4) Urinalysis Test 02/16/25 03:30 Urine Color Yellow (Yellow) Urine Clarity Clear (Clear) Urine pH 5.5 (5.0-9.0) Urine Specific [place] 1.023 (1.001-1.035) Urine Protein Trace (Negative) H Urine Ketones Negative (Negative) Urine Blood Negative /uL (Negative) Urine Nitrite Negative (Negative) Urine Bilirubin Negative (Negative) Urine Urobilinogen Normal mg/dL (Negative) Urine Leukocyte Esterase Trace /uL (Negative) Urine RBC None seen /hpf (0 - 4) Urine Microscopic WBC 4 /HPF (0-5) Urine Squamous Epithelial Cells Few /hpf (<5) Urine Bacteria None seen /hpf (None Seen) Urine Mucus Few (None Seen) Urine Glucose Trace mg/dL (Normal) Microbiology Microbiology Date/Time Source Procedure Growth Status 02/19/25 09:58 Sputum Gram Stain Pending Resulted 02/19/25 09:58 Sputum Respiratory Culture - Preliminary Resulted 02/16/25 07:20 Nose MRSA Screen - Final Complete 02/16/25 04:38 Blood Blood Culture - Final NO GROWTH AFTER 5 DAYS OF INCUBATION. Complete 02/16/25 03:30 Voided Urine Urine Culture - Final Complete Labs and/or images reviewed: Labs reviewed by me Assessment/Plan Assessment/Plan Acute pneumonia Gram-positive versus negative Sepsis due to above Pulmonary embolism, small PE in left lower segmental pulmonary artery. 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 Can not rule out low-grade phyllodes tumor. Chronic obstructive pulmonary disease exacerbation Diabetes mellitus type 2 HGB A1c 6.8 Ruled out acute pyelonephritis3 History of hypertension Hepatic steatosis Plan/recommendation -CT angio chest showed small pain left lower segmental pulmonary artery, initiated Lovenox therapeutic subcu 1 mg/kg twice daily. -CT chest also showed left lower lobe pneumonia, continue with antibiotic Zosyn and azithromycin. Pending sputum, negative Blood culture. -bilateral breast mass concerning for malignancy, radiology and surgery consultation has been done. S/P bilateral breast mass needle biopsy -IV lasix 40 mg daily -new onset diabetes mellitus type 2, continue with insulin sliding scale. -breathing treatment and oxygen via nasal cannula. -IV fluid normal saline 75 mL/hour -Pain management: Morphine 2 gm Q4 PRN -PUD prophylaxis with Protonix -DVT prophylaxis with enoxaparin Pathology report of left and right breast mass. Reported on 02/18/2025. Right breast mass shows fibroepithelial lesion with focal increase in stromal cellularity. No significant cytologic atypia, mitotic activity or necrosis is seen. Findings could present a cellular fibroadenoma. However low-grade phyllodes tumor can not be excluded. Patient will need excisional biopsy to evaluate entire lesion. The patient continued to have left flank pain, pleuritic chest pain. Continued antibiotic Zosyn azithromycin, with pain management morphine and methadone. Biopsy results came back likely fibroadenoma. Surgery consultation has been done, possible excisional biopsy and inpatient versus outpatient based on surgical evaluation. Continue with current management for PE with therapeutic Lovenox at this point. This medical document was created using an electronic medical record system with [employer] direct computerized dictation system. Although this document has been carefully reviewed, there may still be some phonetic and typographical errors. These areas are purely typographical due to imperfections of the software programs, and do not reflect any compromise in the patient's medical care. Plan discussed with: Patient Date of Service: February 21, 2025 Billing Provider: NEW MIN MD Common Visit Codes: [id number] INP/OBS CARE(HIGH) NEW MIN MD February 21, 2025 13:26
[2025-02-22] VITALS (17 sets, daily range): BP systolic 91–127; BP diastolic 59–93; PULSE 78–121; RESP 14–20; TEMP 98.4–99.3; O2SAT 90–100
--- NOTE | 2025-02-22 15:37 | DVHPNRES ---
Progress Note Date Seen: February 22, 2025 Resident Creating Document: ALEE PORTILLO RESIDENT Medical Necessity Reason Pt with a Central, PICC or Fol: No Subjective Review of Systems Patient seen and examined at bedside Continued complaining of left lower chest pain associated with breathing/pleuritic chest pain No fever Continued to be on 2-3 L oxygen via nasal cannula. No any other new complaints during overnight. Objective vital signs Vital Sign Date Time Temp Pulse Resp B/P (MAP) Pulse Ox O2 Delivery O2 Flow Rate FiO2 02/22/25 14:26 82 18 98 02/22/25 14:02 103/64 02/22/25 13:00 99.3 99.3 02/22/25 09:45 Nasal Cannula 4.0 02/22/25 09:45 36 Total Intake and Output 02/21/25 02/21/25 02/22/25 15:00 23:00 07:00 Intake Total 480 ml 100 ml 100 ml Balance 480 ml 100 ml 100 ml medications Current Medications Medications Dose Ordered Sig/Terra Route Start Time Stop Time Status Last Admin Dose Admin Acetaminophen/ Hydrocodone Bitart 1 tab Q4HP PRN PO 02/16/25 03:15 02/20/25 09:45 1 TAB Acetaminophen 650 mg Q6HP PRN PO 02/16/25 03:15 02/18/25 21:41 650 MG Nitroglycerin 0.4 mg Q5MINP PRN SL 02/16/25 03:15 Pantoprazole Sodium 40 mg DAILY IV 02/17/25 10:00 02/22/25 09:30 40 MG Diagnostic Test (Pha) 1 strip ACHS 02/16/25 07:00 02/22/25 11:49 1 STRIP Insulin Human Regular ACHS SC 02/16/25 07:00 02/22/25 11:30 4 UNITS Dextrose 50 ml UD PRN IV 02/16/25 03:15 Piperacillin Sod/ Tazobactam Sod 100 ml @ 25 mls/hr Q6HR IV 02/16/25 06:00 UNV Piperacillin Sod/ Tazobactam Sod 100 ml @ 25 mls/hr Q8HR IV 02/16/25 06:00 02/22/25 13:51 25 MLS/HR Levalbuterol HCl 1.25 mg Q4HR NEB 02/16/25 06:00 02/22/25 14:15 1.25 MG Ipratropium [place] 0.5 mg Q4HR NEB 02/16/25 06:00 02/22/25 14:15 0.5 MG Enoxaparin Sodium 110 mg Q12HR SC 02/16/25 22:00 02/22/25 09:35 110 MG Quetiapine Fumarate 300 mg HS PO 02/16/25 22:00 02/21/25 22:08 300 MG Azithromycin 500 mg DAILY PO 02/17/25 10:00 02/22/25 09:33 500 MG Methadone HCl 115 mg DAILY PO 02/17/25 10:00 02/22/25 09:32 115 MG Furosemide 40 mg DAILY IV 02/19/25 10:00 02/22/25 09:31 40 MG Lorazepam 0.5 mg Q8HP PRN PO 02/18/25 14:15 02/21/25 23:17 0.5 MG Morphine Sulfate 2 mg Q4HPRN PRN IV 02/20/25 10:15 02/22/25 14:02 2 MG Examination General Appearance: Cooperative. Well developed. Well nourished. NAD Head Exam: Normal inspection Neck Exam: Normal inspection. Non-tender. Normal alignment Pulmonary/Respiratory: Chest non-tender. Mild crackles over left lower lung base. No wheezing. Cardiovascular/Chest: Regular rate and rhythm. No murmurs. No JVD. Peripheral Pulses: 2+ Radial (R). 2+ Radial (L). 2+ Pedal (R). 2+ Pedal (L) Abdominal Exam: Normal bowel sounds. Soft. Nontender. No hepatospenomegaly. No masses Ankle Exam: Negative ankle edema Lower extremities: Negative lower extremity edema Neuro/Mental Status: A&O x4. Coherent Thoughts/Psych: Normal thought pattern. Appropriate mood and affect. Good judgement and insight Appearance: In no acute distress Skin Exam: Normal inspection. Normal color. Warm. Dry laboratory and microbiology Laboratory Tests 02/21/25 08:10 Test 02/21/25 08:10 Range/Units Serum Glucose 116 H 74-106 mg/dL Microbiology Date/Time Source Procedure Growth Status 02/19/25 09:58 Sputum Gram Stain - Final Complete 02/19/25 09:58 Sputum Respiratory Culture - Final Complete 02/16/25 07:20 Nose MRSA Screen - Final Complete 02/16/25 04:38 Blood Blood Culture - Final NO GROWTH AFTER 5 DAYS OF INCUBATION. Complete 02/16/25 03:30 Voided Urine Urine Culture - Final Complete Problem List/Assessment/Plan Problem List/Assessment/Plan Acute pneumonia Gram-positive versus negative Sepsis due to above Pulmonary embolism, small PE in left lower segmental pulmonary artery. 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 Can not rule out low-grade phyllodes tumor. Chronic obstructive pulmonary disease exacerbation Diabetes mellitus type 2 HGB A1c 6.8 Ruled out acute pyelonephritis3 History of hypertension Hepatic steatosis Plan/recommendation -CT angio chest showed small pain left lower segmental pulmonary artery, initiated Lovenox therapeutic subcu 1 mg/kg twice daily. -CT chest also showed left lower lobe pneumonia, continue with antibiotic Zosyn and azithromycin. Pending sputum, negative Blood culture. -bilateral breast mass concerning for malignancy, radiology and surgery consultation has been done. S/P bilateral breast mass needle biopsy -IV lasix 40 mg daily -new onset diabetes mellitus type 2, continue with insulin sliding scale. -breathing treatment and oxygen via nasal cannula. -IV fluid normal saline 75 mL/hour -Pain management: Morphine 2 gm Q4 PRN -PUD prophylaxis with Protonix -DVT prophylaxis with enoxaparin Pathology report of left and right breast mass. Reported on 02/18/2025. Right breast mass shows fibroepithelial lesion with focal increase in stromal cellularity. No significant cytologic atypia, mitotic activity or necrosis is seen. Findings could present a cellular fibroadenoma. However low-grade phyllodes tumor can not be excluded. Patient will need excisional biopsy to evaluate entire lesion. Goals of care discussed greater than 24 minutes. Full code status. Plan discussed with Dr. Gonzalez Plan discussed with: Patient, Other (RN) Dietary Evaluation Review Recommendations by RD: Dietary education by RD Comments: 1) Add 60g CCHO restriction to cardiac diet 2) Encourage optimal PO intake; if < 50%, consider Glucerna bid 3) Refer to outpatient RD/CD[facility] for diabetes education and weight management 4) Follow-up with pulmonology and oncology/hematology 5) Continue to monitor I&O, labs, and skin integrity Expected Outcomes/Goals: 1) appetite and labs to improve 2) f/u in 3-5 days Date of Service: February 22, 2025 Billing Provider: NEW GONZALEZ MD Common Visit Codes: [id number] INP/OBS CARE(HIGH) ALEE PORTILLO RESIDENT February 22, 2025 15:36 NEW GONZALEZ MD February 22, 2025 17:58
[2025-02-23] VITALS (10 sets, daily range): BP systolic 91–123; BP diastolic 59–70; PULSE 66–84; RESP 16–18; TEMP 97.5–99.4; O2SAT 90–99
[2025-02-23 06:51] LABS: Basophils # (auto) 0 10 ^3/uL (0-0.2); Basophils % (auto) 0.3 % (0.0-2.0); Eosinophils # (auto) 0.3 10 ^3/uL (0-0.8); Eosinophils % (auto) 3.5 % (0.0-7.0); Hematocrit 36.6 % (36.0-46.0); Hemoglobin 12.2 g/dL (12.2-16.2); Lymphocytes # (auto) 2.4 10 ^3/uL (0.4-5.4); Mean Corpuscular Hemoglobin 27.6 pg (28.0-32.0); Mean Corpuscular Hgb Conc. 33.2 g/dL (32.0-36.0); Mean Corpuscular Volume 83.1 fL (80.0-100.0); Monocytes # (auto) 0.7 10 ^3/uL (0-1.3); Monocytes % (auto) 7.7 % (0.0-12.0); Neutrophils # (auto) 5.4 10 ^3/uL (1.6-8.6); Neutrophils % (auto) 61.5 % (37.0-80.0); Nucleated Red Blood Cells % 0.1 %; Platelet Count (auto) 304 10^3/uL (140-450); Red Cell Distribution Width 15.5 % (11.8-14.3); White Blood Cell 8.8 10^3/uL (4.4-10.8)
[2025-02-23 06:58] LABS: Anion Gap 10 (5-15); Carbon Dioxide 29 mmol/L (20-31); Chloride 102 mmol/L (98-107); Potassium 3.6 mmol/L (3.5-5.1); Sodium 141 mmol/L (136-145)
[2025-02-23 07:04] LABS: BUN/Creatinine Ratio 12.7 (10.0-20.0); Blood Urea Nitrogen 14 mg/dL (9-23)
[2025-02-23 07:06] LABS: Calcium 9.5 mg/dL (8.7-10.4); Glucose 175 mg/dL (74-106)
[2025-02-23] MEDS ORDERED: AUG875T PO (13:52)
[2025-02-23] MEDS ORDERED: APIX5TAB4 PO (13:52)
[2025-02-23] MEDS ORDERED: FURO1TAB33 PO (14:15)
--- NOTE | 2025-02-23 14:15 | DVHDSRES ---
Discharge Summary Date of Admission Resident Creating Document: ALEE PORTILLO RESIDENT February 16, 2025 at 03:10 Date of Discharge: February 23, 2025 Admitting Diagnosis shortness of breath Labs/Diagnostic Data: Laboratory Results Test 02/23/25 10:54 02/23/25 05:40 02/20/25 06:34 02/17/25 08:48 POC Glucose 215 mg/dl (70-106) White Blood Count 8.8 10^3/uL (4.4-10.8) Red Blood Count 4.40 10^6/uL (4.0-5.20) Hemoglobin 12.2 g/dL (12.2-16.2) Hematocrit 36.6 % (36.0-46.0) Mean Corpuscular Volume 83.1 fL (80.0-100.0) Mean Corpuscular Hemoglobin 27.6 pg (28.0-32.0) Mean Corpuscular Hemoglobin Concent 33.2 g/dL (32.0-36.0) Red Cell Distribution Width 15.5 % (11.8-14.3) Platelet Count 304 10^3/uL (140-450) Mean Platelet Volume 7.1 fL (6.9-10.8) Neutrophils (%) (Auto) 61.5 % (37.0-80.0) Lymphocytes (%) (Auto) 27.0 % (10.0-50.0) Monocytes (%) (Auto) 7.7 % (0.0-12.0) Eosinophils (%) (Auto) 3.5 % (0.0-7.0) Basophils (%) (Auto) 0.3 % (0.0-2.0) Neutrophils # (Auto) 5.4 10 ^3/uL (1.6-8.6) Lymphocytes # (Auto) 2.4 10 ^3/uL (0.4-5.4) Monocytes # (Auto) 0.7 10 ^3/uL (0-1.3) Eosinophils # (Auto) 0.3 10 ^3/uL (0-0.8) Basophils # (Auto) 0 10 ^3/uL (0-0.2) Nucleated Red Blood Cells 0.1 % Sodium Level 141 mmol/L (136-145) Potassium Level 3.6 mmol/L (3.5-5.1) Chloride Level 102 mmol/L (98-107) Carbon Dioxide Level 29 mmol/L (20-31) Anion Gap 10 (5-15) Blood Urea Nitrogen 14 mg/dL (9-23) Creatinine 1.10 mg/dL (0.550-1.02) Glomerular Filtration Rate Calc 55 mL/min (>90) BUN/Creatinine Ratio 12.7 (10.0-20.0) Serum Glucose 175 mg/dL (74-106) Calcium Level 9.5 mg/dL (8.7-10.4) Magnesium Level 2.4 mg/dL (1.6-2.6) Lactic Acid Level 1.2 mmol/L (0.4-2.0) Test 02/17/25 06:25 02/16/25 18:04 02/16/25 11:30 02/16/25 07:35 Total Bilirubin 0.4 mg/dL (0.2-1.0) Aspartate Amino Transferase (AST) 15 U/L (13-40) Alanine Aminotransferase (ALT) 15 U/L (7-40) Alkaline Phosphatase 60 U/L (46-116) Total Protein 6.4 g/dL (5.7-8.2) Albumin 3.9 g/dL (3.2-4.8) Prothrombin Time 10.7 sec (9.3-11.8) Prothrombin Time INR 1.01 (0.9-1.15) Activated Partial Thromboplast Time 26.4 SEC (24.5-34.5) Troponin I High Sensitivity < 3 ng/L (</=34) Influenza Type A Antigen Negative (Negative) Influenza Type B Antigen Negative (Negative) SARS-CoV-2 Antigen (Rapid) Negative (NEGATIVE) Test 02/16/25 04:38 02/16/25 03:30 02/16/25 01:50 D-Dimer, Quantitative 1.40 mg/L FEU (0.0-0.49) Thyroid Stimulating Hormone (TSH) 1.85 uIU/mL (0.55-4.78) Plasma/Serum Blood Alcohol < 3.0 mg/dL (<10) Urine Color Yellow (Yellow) Urine Clarity Clear (Clear) Urine pH 5.5 (5.0-9.0) Urine Specific [place] 1.023 (1.001-1.035) Urine Protein Trace (Negative) Urine Ketones Negative (Negative) Urine Blood Negative /uL (Negative) Urine Nitrite Negative (Negative) Urine Bilirubin Negative (Negative) Urine Urobilinogen Normal mg/dL (Negative) Urine Leukocyte Esterase Trace /uL (Negative) Urine RBC None seen /hpf (0 - 4) Urine Microscopic WBC 4 /HPF (0-5) Urine Squamous Epithelial Cells Few /hpf (<5) Urine Bacteria None seen /hpf (None Seen) Urine Mucus Few (None Seen) Urine Glucose Trace mg/dL (Normal) Urine Opiates Screen Neg (NEGATIVE) Urine Fentanyl Screen Neg (NEGATIVE) Urine Barbiturates Screen Neg (NEGATIVE) Urine Phencyclidine Screen Neg (NEGATIVE) Urine Amphetamines Screen Neg (NEGATIVE) Urine Benzodiazepines Screen Neg (NEGATIVE) Urine Cocaine Screen Neg (NEGATIVE) Urine Cannabinoids Screen Neg (NEGATIVE) Hemoglobin A1c 6.8 % A1C (<5.7) B-Type Natriuretic Peptide 6.70 pg/mL (0-100) Other Laboratory Tests 02/23/25 05:40 Brief Hx & Hospital Course: Patient is 64 old male with past medical history of hypertension, diabetes mellitus, Chronic obstructive pulmonary disease who presented to the hospital with a chief complaint of in [place] worsening shortness of breath with cough expectoration with the with chest pain located mainly on over left lower lobe lung. Patient underwent CT angio chest which showed small left lower segmental pulmonary artery embolism, left lower lobe pneumonia. Patient is started on IV antibiotics Zosyn and azithromycin , underwent sputum and blood culture assessment as well. For PE, patient is started on therapeutic Lovenox subQ 1 mg/kg twice daily, transitioned to Eliquis oral. Given pleuritic chest pain, PE patient continued to have left lower lobe chest pain with breathing, appropriate pain med armored transport service manager done while patient was in hospital, patient advised to continue around medication methadone for chronic pain management and advised to follow with primary care physician for continuity of care. Patient agreed with discharge plan, given patient is hemodynamically stable, saturating 96% on room air, no fever, no acute abnormalities , patient will be discharged home. Condition at Discharge: Stable Final Diagnosis/Problems List Acute pneumonia Gram-positive versus negative Sepsis due to above Pulmonary embolism, small PE in left lower segmental pulmonary artery. 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 Can not rule out low-grade phyllodes tumor. Chronic obstructive pulmonary disease exacerbation Diabetes mellitus type 2 HGB A1c 6.8 Ruled out acute pyelonephritis3 History of hypertension Hepatic steatosis Discharge Disposition: Home Discharge Instruct/Medications Diet: Regular Activity: No Restrictions, As Tolerated Follow Up/Referral: -follow up with PCP Medications: - See precription Discharge Statement: "Patient was advised to return to the ER or call 911 if any headaches, dizziness, shortness of breath, chest pain, abdominal pain, bleeding, fevers, or worsening of medical condition. Patient was counseled about treatment plan, medications, possible side effects, patientverbalized understanding. All questions were answered to the best of my ability. This discharge took greater then 30 minutes in planning, reviewing documentation, counseling the patient, and discussing with other team members." ASSESSMENT ASSESSMENT Assessment pneumonia left pulmonary embolism Date of Service: February 23, 2025 Billing Provider: NEW MIN MD Common Visit Codes: 18528-TBI/OBS DISCH DAY >30min ALEE PORTILLO RESIDENT February 23, 2025 14:15 NEW MIN MD February 23, 2025 22:59
== END 2025-02-23 15:30 | disposition home or self-care (01) | DRG 871 ==
LOC: EDBD 00:49 → EEVIPCON 00:54 → ER 00:54 → OVERFLOW 03:10 → TELE-EAST 05:20
PROVIDERS: ADMIT Internal Medicine; ATTEND Obstetrics & Gynecology
PROC: 0HBV3ZX Excision of Bilateral Breast, Percutaneous Approach, Diagnostic (ICD-10-PCS; principal; 2025-02-16)
DX: A41.50 Gram-negative sepsis, unspecified (principal); I26.99 Other pulmonary embolism without acute cor pulmonale; J15.69 Pneumonia due to other Gram-negative bacteria; J96.01 Acute respiratory failure with hypoxia; I50.31 Acute diastolic (congestive) heart failure; J15.9 Unspecified bacterial pneumonia; J44.1 Chronic obstructive pulmonary disease with (acute) exacerbation; J44.0 Chronic obstructive pulmonary disease with (acute) lower respiratory infection; Z68.41 Body mass index [BMI] 40.0-44.9, adult; Z20.822 Contact with and (suspected) exposure to COVID-19; I11.0 Hypertensive heart disease with heart failure; K76.0 Fatty (change of) liver, not elsewhere classified; F17.210 Nicotine dependence, cigarettes, uncomplicated; D24.1 Benign neoplasm of right breast; E66.01 Morbid (severe) obesity due to excess calories; Z99.81 Dependence on supplemental oxygen; Z83.3 Family history of diabetes mellitus; Z79.899 Other long term (current) drug therapy; Z79.4 Long term (current) use of insulin; D24.2 Benign neoplasm of left breast
CPT/HCPCS: 36415; 71045; 71275; 74176; 76642; 76775; 76942; 80048; 80053; 80307; 80320; 81001; 82962; 83036; 83605; 83735; 83880; 84443; 84484; 85025; 85379; 85610; 85730; 87040; 87070; 87081; 87086; 87205; 87426; 87804; 93005; 93306; 94640; 96365; 96372; 96375; 97163; G0378; J1100; J1815; J2003; J2470; J2543

== ENCOUNTER 2025-08-04 20:27 | Emergency (ER) | payer MEDICARE, MEDICAID ==
[~2025-08-04] VITALS: Ht 165.1 cm; Wt 104.0 kg
[~2025-08-04 20:27] MED LIST: APIX5TAB4 PO; AUG875T PO; FURO1TAB33 PO; METH-1214 PO; QUET300T24 PO
[2025-08-04] MEDS ORDERED: PROCHLORPERAZINE EDISYLATE 5 MG/ML 2ML VIAL IV ONE (20:30)
[2025-08-04] MEDS ORDERED: GLUCAGON EMERG KIT 1mg/1ml IV ONE (20:30)
[2025-08-04 21:47] LABS: Hematocrit 44.5 % (36.0-46.0); Hemoglobin 14.8 g/dL (12.2-16.2); Mean Corpuscular Hemoglobin 27.7 pg (28.0-32.0); Mean Corpuscular Volume 83.5 fL (80.0-100.0); Nucleated Red Blood Cells % 0.1 %
--- NOTE | 2025-08-04 22:01 | DVH ---
CHEST RADIOGRAPH Indication: cp Technique: Single frontal view of the chest was obtained COMPARISON: XY CHEST XRAY 1 VIEW on DOS: 02/18/25, CT CT ANGIO CHEST CONTRAST on DOS: 02/16/25, US ECHO 2D MODE CARDIAC DOP on DOS: 02/16/25, XY CHEST XRAY 1 VIEW on DOS: 02/16/25 FINDINGS: Lungs and pleural spaces are clear. Cardiac silhouette and dayne are within normal limits. Bones and soft tissues demonstrate no significant abnormality. IMPRESSION: No acute disease.
[2025-08-04 22:04] LABS: Alkaline Phosphatase 82 U/L (46-116); Anion Gap 9 (5-15); BUN/Creatinine Ratio 11.8 (10.0-20.0); Blood Urea Nitrogen 13 mg/dL (9-23); Calcium 9.6 mg/dL (8.7-10.4); Carbon Dioxide 27 mmol/L (20-31); Chloride 103 mmol/L (98-107); Potassium 4.3 mmol/L (3.5-5.1); Sodium 139 mmol/L (136-145); Total Protein 7.8 g/dL (5.7-8.2)
[2025-08-04 22:05] LABS: Albumin 4.5 g/dL (3.2-4.8); Bilirubin, Total 0.3 mg/dL (0.2-1.0)
[2025-08-04 22:09] LABS: Alanine Aminotransferase 59 U/L (7-40); Glucose 136 mg/dL (74-106)
[2025-08-04 22:14] VITALS: PULSE 83; RESP 14; O2SAT 93
[2025-08-04] MEDS ORDERED: HYDROcodone-ACET 5/325MG TAB PO ONE (22:15)
[2025-08-04] MEDS: HYDROcodone-ACET 5/325MG TAB PO ONE (22:47)
--- NOTE | 2025-08-04 23:37 | ECG ---
[facility] [place] Test Date: 2025-08-04 Test Time: 23:35:25 Pat Name: CLIFF TEMPLETON Department: Room: Gender: F Punch Machine Hand: : 1960 Requested By: KENAN FIUGEROA Order Number: [id number] Reading MD: Luciano Villegas Measurements Intervals [place] Rate: 83 P: 44 MD: 155 QRS: 61 QRSD: 93 T: 42 QT: 369 QTc: 434 Interpretive Statements Sinus rhythm Electronically Signed On 08-09-2025 10:52:04 PST by Luciano Villegas Please click the below link to view image of tracing.
[2025-08-04] MEDS ORDERED: QUET1TAB88 PO (23:42)
--- NOTE | 2025-08-04 23:45 | ED.PDOC ---
HPI Comments 64-year-old female brought in by EMS. Patient complaining of chest pain started two days ago. States she has been feeling more stress. Takes hydroxyzine for anxiety. States she also ran out of her Seroquel one no 400 mg. Nothing makes it better, nothing makes it worse. Patient states she felt off so she says she is coming get checked out. Chief Complaint: Chest Pain Time Seen by MD: 20:28 Reviewed Notes: Nurses Notes Allergies: Coded Allergies: NO KNOWN ALLERGIES (Unverified , 02/16/25) Home Meds Active Scripts Furosemide (Lasix) 20 Mg Tb, 1 TAB PO DAILY, #30 TAB 5 Refills Prov:ALEE PORTILLO RESIDENT 02/23/25 Apixaban Base (Eliquis Starter Pack) 5 Mg Tab, 5 MG PO BID for 90 Days, #180 TAB please take 2 tablet twice daily for first 10 days and then one tablet tablet twice daily Prov:ALEE PORTILLO RESIDENT 02/23/25 Amoxicillin & Pot Clavulanate (AUGMENTIN TABLET) 875 Mg Tb, 875 MG PO BID for 3 Days, #6 TAB Prov:ALEE PORTILLO RESIDENT 02/23/25 Reported Medications Methadone Hcl (METHADONE HCL TABLET) 10 Mg Tb, 140 MG PO DAILY, TAB 02/16/25 Quetiapine Fumerate (QUETIAPINE FUMARATE) 300 Mg Tab, 1-2 TAB PO 02/16/25 Information Source: Patient Mode of Arrival: EMS Past Medical History PAST MEDICAL HISTORY: COPD, DM, HTN Surgical History: Denies all surgeries BONE PULLER History: Denies all BONE PULLER Hx Family History Family History: Unknown Social History Smoker: Non-Smoker Alcohol: Denies ETOH Use Drugs: Denies Drug Use Lives In: Home Constitutional: denies: chills, diaphoresis, fatigue, fever, malaise, sweats, weakness, others EENTM: denies: blurred vision, double vision, ear bleeding, ear discharge, ear drainage, ear pain, ear ringing, eye pain, eye redness, hearing loss, mouth pain, mouth swelling, nasal discharge, nose bleeding, nose congestion, nose pain, photophobia, tearing, throat pain, throat swelling, voice changes, others Respiratory: denies: cough, hemoptysis, orthopnea, SOB at rest, shortness of breath, SOB with excertion, stridor, wheezing, others Cardiovascular: denies: chest pain, dizzy spells, diaphoresis, Dyspnea on exertion, edema, irregular heart beat, left arm pain, lightheadedness, palpitations, PND, syncope, others Gastrointestinal: denies: abdomen distended, abdominal pain, blood streaked bowels, constipated, diarrhea, dysphagia, difficulty swallowing, hematemesis, melena, nausea, poor appetite, poor fluid intake, rectal bleeding, rectal pain, vomiting, others Genitourinary: denies: abnormal vagina bleeding, burning, dyspareunia, dysuria, flank pain, frequency, hematuria, incontinence, pain, , vagina dis charge, urgency, others Neurological: denies: dizziness, fainting, headache, left sided numbness, left sided weakness, numbness, paresthesia, pre-existing deficit, right sided numbness, right sided weakness, seizure, speech problems, tingling, tremors, weakness, others Musculoskeletal: denies: back pain, gout, joint pain, joint swelling, muscle pain, muscle stiffness, neck pain, others Integumetry: denies: bruises, change in color, change in hair/nails, dryness, laceration, lesions, lumps, rash, wounds, others Allergic/Immunocompromised: denies: Difficulty Healing, Frequent Infections, Hives, Itching, others Physical Exam General Appearance: No Apparent Distress, Normal HEENT: Normal ENT Inspection, Pharynx Normal, TMs Normal Neck: Full Range of Motion, Non-Tender, Normal, Normal Inspection Respiratory: Chest Non-Tender, Lungs Clear, No Accessory Muscle Use, No Respiratory Distress, Normal Breath Sounds Cardiovascular: No Edema, No JVD, No Murmur, No Gallop, Normal Peripheral Pulses, Regular Rate/Rhythm, Other (Chest pain reproducible with light palpatio n) Breast Exam: Deferred Gastrointestinal: No Organomegaly, Non Tender, No Pulsatile Mass, Normal Bowel Sounds, Soft Genitalia: Deferred Pelvic: Deferred Rectal: Deferred Extremities: No calf tenderness, Normal capillary refill, Normal inspection, Normal range of motion, Non-tender, No pedal edema Musculoskeletal : Apperance: Normal Neurologic: Alert, bag machine tender II-XII nml as Tested, No Motor Deficits, Normal Affect, Normal Mood, No Sensory Deficits Cerebellar Function: Normal Reflexes: Normal Skin: Dry, Normal Color, Warm Lymphatic: No Adenopathy Was a procedure done? Was a procedure done?: No CP Differential Dx Differential Diagnosis: Angina, Anxiety / Panic Attack, CT X-Ray, Labs, Meds, VS Vital Signs Date Time Temp Pulse Resp B/P (MAP) Pulse Ox O2 Delivery O2 Flow Rate FiO2 08/04/25 22:14 83 14 93 Nasal Cannula* 2 28 08/04/25 22:14 98.7 83 14 179/97 (124) 93 98.7 08/04/25 21:50 84 08/04/25 20:33 82 08/04/25 20:27 98.0 84 20 162/88 92 98.0 Lab Test 08/04/25 21:42 08/04/25 20:40 Range/Units Troponin I High Sensitivity < 3 L < 3 L </=34 ng/L White Blood Count 8.2 4.4-10.8 10^3/uL Red Blood Count 5.33 H 4.0-5.20 10^6/uL Hemoglobin 14.8 12.2-16.2 g/dL Hematocrit 44.5 36.0-46.0 % Mean Corpuscular Volume 83.5 80.0-100.0 fL Mean Corpuscular Hemoglobin 27.7 L 28.0-32.0 pg Mean Corpuscular Hemoglobin Concent 33.1 32.0-36.0 g/dL Red Cell Distribution Width 16.9 H 11.8-14.3 % Platelet Count 256 140-450 10^3/uL Mean Platelet Volume 7.2 6.9-10.8 fL Neutrophils (%) (Auto) 65.0 37.0-80.0 % Lymphocytes (%) (Auto) 24.9 10.0-50.0 % Monocytes (%) (Auto) 7.3 0.0-12.0 % Eosinophils (%) (Auto) 2.4 0.0-7.0 % Basophils (%) (Auto) 0.4 0.0-2.0 % Neutrophils # (Auto) 5.3 1.6-8.6 10 ^3/uL Lymphocytes # (Auto) 2.0 0.4-5.4 10 ^3/uL Monocytes # (Auto) 0.6 0-1.3 10 ^3/uL Eosinophils # (Auto) 0.2 0-0.8 10 ^3/uL Basophils # (Auto) 0 0-0.2 10 ^3/uL Nucleated Red Blood Cells 0.1 % Sodium Level 139 136-145 mmol/L Potassium Level 4.3 3.5-5.1 mmol/L Chloride Level 103 98-107 mmol/L Carbon Dioxide Level 27 20-31 mmol/L Anion Gap 9 5-15 Blood Urea Nitrogen 13 9-23 mg/dL Creatinine 1.10 H 0.550-1.02 mg/dL Glomerular Filtration Rate Calc 55 >90 mL/min BUN/Creatinine Ratio 11.8 10.0-20.0 Serum Glucose 136 H 74-106 mg/dL Calcium Level 9.6 8.7-10.4 mg/dL Total Bilirubin 0.3 0.2-1.0 mg/dL Aspartate Amino Transferase (AST) 45 H 13-40 U/L Alanine Aminotransferase (ALT) 59 H 7-40 U/L Alkaline Phosphatase 82 46-116 U/L B-Type Natriuretic Peptide 16.64 0-100 pg/mL Total Protein 7.8 5.7-8.2 g/dL Albumin 4.5 3.2-4.8 g/dL Current Medications Medications (Trade) Dose Ordered Sig/Terra Route Start Time Stop Time Status Last Admin Acetaminophen/ Hydrocodone Bitart (Spelter 5/325MG Tab) 1 tab ONCE ONCE PO 08/04/25 22:15 08/04/25 22:46 DC 08/04/25 22:47 X-Ray, Labs, Meds, VS Comment Imaging was reviewed by this provider, there is no obvious pathological or acute disease process. Pending radiology review Labs were reviewed by this provider, no abnormalities Vital signs reviewed by this provider, clinically stable Time of 1ST Reevaluation: 23:42 Reevaluation 1ST: Improved Patient Education/Counseling: Diagnosis, Treatment, Need For Follow Up (Follow up with PCP next available appointment. Return to the emergency department if symptoms worsen.) Family Education/Counseling: Diagnosis SEPSIS Sepsis Screen Date sepsis recognized/suspect: Aug 04, 2025 Time Sepsis recognized/suspect: 2213 Recent Procedure: No On Antibiotic Therapy: No Respiratory Rate >20: No Heart Rate >90: No Temp<36 C (96.8 F) or >38.3 C: No SBP <90 or MAP <65 mmHG: No New Acute Mental Status Change: No Is the patient on CPAP, BIPAP,: No Physician Orders Electrocardigram (08/04/25 21:40) Electrocardigram (08/04/25 23:40) Urinalysis (08/04/25 21:07) Chest Xray 1 View (08/04/25 21:07) Troponin-I Hs (08/05/25 00:31) Vital Signs Date Time Temp Pulse Resp B/P (MAP) Pulse Ox O2 Delivery O2 Flow Rate FiO2 08/04/25 22:14 83 14 93 Nasal Cannula* 2 28 08/04/25 22:14 98.7 83 14 179/97 (124) 93 98.7 08/04/25 21:50 84 08/04/25 20:33 82 08/04/25 20:27 98.0 84 20 162/88 92 98.0 Laboratory Tests Test 08/04/25 20:40 White Blood Count 8.2 10^3/uL (4.4-10.8) Medications Medications Dose Ordered Sig/Terra Route Start Time Stop Time Status Last Admin Dose Admin Acetaminophen/ Hydrocodone Bitart 1 tab ONCE ONCE PO 08/04/25 22:15 08/04/25 22:46 DC 08/04/25 22:47 Departure 1 Departure Time of Disposition: 23:41 Impression: Primary Impression: Musculoskeletal chest pain Disposition: 01 HOME / SELF CARE / HOMELESS Condition: Stable e-Prescriptions Quetiapine Fumarate (Quetiapine Fumarate ER) 400 Mg Tab 400 MG PO DAILY, #60 TAB Prov: KENAN FIGUEROA 08/04/25 Discharged With: Self Critical Care Note Critical Care Time?: No Stability Stability form required: No Heart Score Heart Score: Heart Score Response (Comments) Value History Slightly Suspicious 0 EKG Normal 0 Age >65 2 Risk Factors 1 or 2 risk factors 1 Troponin Normal limit 0 Total 3 KENAN FIGUEROA Aug 04, 2025 23:45
[2025-08-05 00:45] VITALS: BP 108/50; PULSE 79; RESP 16; TEMP 98.2; O2SAT 93
--- NOTE | 2025-08-05 04:05 | ECG ---
[facility] Test Date: 2025-08-04 Test Time: 21:50:13 Pat Name: CLIFF TEMPLETON Department: Room: Gender: F Coroner Forensic Technician: : 1960 Requested By: KENAN FIGUEROA Order Number: [id number] Reading MD: Luciano Villegas Measurements Intervals [place] Rate: 84 P: 41 [place]: 157 QRS: 62 QRSD: 93 T: 43 QT: 374 QTc: 443 Interpretive Statements Sinus rhythm Electronically Signed On 08-09-2025 10:51:57 PST by Luciano Villegas Please click the below link to view image of tracing.
--- NOTE | 2025-08-10 12:00 | ECG ---
[facility] Test Date: 2025-08-04 Test Time: 20:33:32 Pat Name: CLIFF TEMPLETON Department: [facility] ED Patient ID: [facility]-[id number] Room: Gender: F Standard Machine Stitcher: JUAN : 1960 Requested By: KENAN FIGUEROA Order Number: [id number] Reading MD: Measurements Intervals [place] Rate: 82 P: 151 SD: 148 QRS: 151 QRSD: 90 T: 147 QT: 542 QTc: 633 Interpretive Statements Right and left arm electrode reversal, interpretation assumes no reversal Sinus or ectopic atrial rhythm Probable left atrial enlargement Left posterior fascicular block Nonspecific T abnormalities, lateral leads Prolonged QT interval Please click the below link to view image of tracing.
== END 2025-08-05 01:31 | disposition home or self-care (01) ==
LOC: EDBD 20:27 → EEVIPCON 20:27 → ER 20:27
DX: R07.89 Other chest pain (principal); I11.0 Hypertensive heart disease with heart failure; I50.9 Heart failure, unspecified; E11.9 Type 2 diabetes mellitus without complications; F41.9 Anxiety disorder, unspecified; I10 Essential (primary) hypertension; J44.9 Chronic obstructive pulmonary disease, unspecified; Z79.899 Other long term (current) drug therapy
CPT/HCPCS: 36415; 71045; 80053; 83880; 84484; 85025; 93005